=== PATIENT | male | born 1930 | race Caucasian/White ===

== ENCOUNTER 2017-04-09 10:28 | Inpatient (IN) | payer MEDICARE ==
[2017-04-09] MEDS ORDERED: DUONEB 0.5-3 MG/3 ml Neb IH ONE ×2 (10:30→10:36)
--- NOTE | 2017-04-09 10:42 | ERPHSYRPT ---
- History of Present Illness Time Seen by Provider: 04/09/17 10:29 Source: patient, EMS Physician History: CC: confusion Hx: 87 y/o patient udnergoing XRT for cancer. He has almost completed XRT. He was supposed to go to the [facility] today to live. reports he was short of air and confused so called EMS. Pt unable to give coherent hx. EMS noted low O2 saturations requiring NRB mask to get saturation over 90%. Timing/Duration: today Severity: moderate, severe Allergies/Adverse Reactions: No Known Drug Allergies Allergy (Unverified 04/09/17 12:01) - Review of Systems Constitutional: Malaise, Weakness, No Fever, No Chills Respiratory: Cough, Dyspnea Abdominal/Gastrointestinal: No Vomiting, No Diarrhea All Other Systems: Unable due to condition - Past Medical History Pertinent Past Medical History: Yes Other Medical History: Heart Disease. AICD. Head&Neck Squamous Cell Cancer - Social History Patient Lives Alone: No (lives with , going to [facility]) - Nursing Vital Signs Nursing Vital Signs: Initial Vital Signs Temperature 98.3 F 04/09/17 10:29 Pulse Rate 87 04/09/17 10:29 Respiratory Rate 28 H 04/09/17 10:29 Blood Pressure 140/86 04/09/17 10:29 O2 Sat by Pulse Oximetry 84 L 04/09/17 10:29 Pain Scale Pain Intensity 1 - Physical Exam General Appearance: moderate distress, alert Eye Exam: PERRL/EOMI Ears, Nose, Throat Exam: dry mucous membranes Neck Exam: normal inspection, supple Respiratory Exam: crackles/rales, rhonchi Cardiovascular Exam: regular rate/rhythm Gastrointestinal/Abdomen Exam: soft, No tenderness, No distention, No guarding Extremity Exam: No calf tenderness, No pedal edema Neurologic Exam: alert, cooperative (moderately, confused), No motor deficits Skin Exam: warm - Course Nursing assessment & vital signs reviewed: Yes - Radiology Exams cxr X-ray Interpretation: Teleradiologist Report (hyperinflated, now clear) Ordered Tests: Active Orders 24 hr Category Date Time Status County Judge STAT Care 04/09/17 10:29 Active EKG-ER Only STAT Care 04/09/17 10:29 Active Oxygen-ED Only NON-REBREATHER 100% Care 04/09/17 10:30 Active Pulse Oximetry (ED) STAT Care 04/09/17 10:29 Active Rectal Temperature STAT Care 04/09/17 10:32 Active Saline Lock STAT Care 04/09/17 10:29 Active CHEST 1 VIEW (PORTABLE) Stat Exams 04/09/17 10:30 Completed ARTERIAL BLOOD GASES Stat Lab 04/09/17 10:30 Completed BLOOD CULTURE Stat Lab 04/09/17 10:55 Received CBC W DIFF Stat Lab 04/09/17 10:55 Completed CMP Stat Lab 04/09/17 10:55 Completed CULTURE,URINE Stat Lab 04/09/17 10:29 Ordered Lactic Acid Stat Lab 04/09/17 11:05 Completed Manual Differential NC Stat Lab 04/09/17 10:55 Completed NT PRO BNP Stat Lab 04/09/17 10:55 Completed PROTIME WITH INR Stat Lab 04/09/17 10:55 Completed PTT Stat Lab 04/09/17 10:55 Completed UA Stat Lab 04/09/17 10:29 Ordered Respiratory Nebulizer STAT RT 04/09/17 10:30 Completed Medication Summary Generic Name Dose Route Start Last Admin Trade Name Freq PRN Reason Stop Dose Admin Levofloxacin/Dextrose 750 mg in 150 mls @ 100 mls/hr 04/09/17 12:01 Levofloxacin 750mg/150ml D5w IV 04/09/17 13:30 STAT STA Discontinued Medications Generic Name Dose Route Start Last Admin Trade Name Freq PRN Reason Stop Dose Admin Albuterol/Ipratropium 3 ml 04/09/17 10:30 04/09/17 11:12 Duoneb 0.5-3 Mg/3 Ml Neb IH 04/09/17 10:31 3 ml STAT ONE Administration Albuterol/Ipratropium Confirm 04/09/17 10:36 Duoneb 0.5-3 Mg/3 Ml Neb Administered 04/09/17 10:37 Dose 3 ml IH .STK-MED ONE Lorazepam 0.25 mg 04/09/17 11:26 04/09/17 11:33 Ativan 2 Mg/1 Ml Vial IV 04/09/17 11:27 0.25 mg STAT ONE Administration Lorazepam Confirm 04/09/17 11:27 Ativan 2 Mg/1 Ml Vial Administered 04/09/17 11:28 Dose 2 mg .ROUTE .STK-MED ONE Methylprednisolone Sodium Succinate 80 mg 04/09/17 12:01 Solu-Medrol 125 Mg IV 04/09/17 12:02 STAT ONE Lab/Rad Data: Laboratory Result Diagrams 04/09/17 10:55 04/09/17 10:55 Laboratory Results 04/09/17 04/09/17 04/09/17 Range/Units 11:05 10:55 10:55 WBC (4.0-10.5) K/mm3 RBC (4.1-5.6) M/mm3 Hgb (12.5-18.0) gm/dl Hct (42-50) % MCV (78-100) fl MCH (26-32) pg MCHC (32-36) g/dl RDW (11.5-14.0) % Plt Count (150-450) K/mm3 MPV (6-9.5) fl INR 1.24 (0.8-3.0) APTT 30.2 (24.1-36.1) SECONDS Puncture Site pCO2 (35-45) mmHg pO2 (75-100) mmHg Base Excess (-2.0-2.0) O2 Saturation (94-100) g/dF ABG pH (7.35-7.45) ABG HCO3 (22-28) ABG O2 Sat (Measured) (95-100) % Jw Test A-a Gradient a/A Ratio Hemoglobin Carboxyhemoglobin (0.0-6.9) % THgb Methemoglobin (1.4-1.5) % Potassium (3.5-5.1) Temperature C POC O2 Flow Rate % Sodium (136-145) mEq/L Chloride (98-107) mEq/L Carbon Dioxide (21-32) mEq/L Anion Gap (5-15) MEQ/L BUN (9-20) mg/dL Creatinine (0.55-1.30) mg/dl Estimated GFR ML/MIN Glucose (70-110) MG/DL Lactic Acid 1.9 (0.4-2.0) Calcium (8.5-10.1) mg/dL Total Bilirubin (0.2-1.0) mg/dL AST (15-37) U/L ALT (12-78) U/L Alkaline Phosphatase (46-116) U/L NT-Pro-B Natriuret Pep 93066 H (0-450) pg/ml Serum Total Protein (6.4-8.2) gm/dL Albumin (3.4-5.0) g/dL 04/09/17 04/09/17 04/09/17 Range/Units 10:55 10:55 10:30 WBC 5.8 (4.0-10.5) K/mm3 RBC 2.61 L (4.1-5.6) M/mm3 Hgb 9.8 L (12.5-18.0) gm/dl Hct 29.8 L (42-50) % MCV 114.2 H (78-100) fl MCH 37.5 H (26-32) pg MCHC 32.9 (32-36) g/dl RDW 13.9 (11.5-14.0) % Plt Count 182 (150-450) K/mm3 MPV 10.4 H (6-9.5) fl INR (0.8-3.0) APTT (24.1-36.1) SECONDS Puncture Site RIGHT BRACHIAL pCO2 19 L* (35-45) mmHg pO2 75 (75-100) mmHg Base Excess 4.8 H (-2.0-2.0) O2 Saturation 95.5 (94-100) g/dF ABG pH 7.70 H* (7.35-7.45) ABG HCO3 23.5 (22-28) ABG O2 Sat (Measured) 98.6 (95-100) % Jw Test NOT APPLICABLE A-a Gradient 158 a/A Ratio 0.32 Hemoglobin 10.8 Carboxyhemoglobin 2.0 (0.0-6.9) % THgb Methemoglobin 1.1 L (1.4-1.5) % Potassium 3.4 L 3.4 L (3.5-5.1) Temperature 37.0 C POC O2 Flow Rate 36 % Sodium 143 (136-145) mEq/L Chloride 103 (98-107) mEq/L Carbon Dioxide 24.9 (21-32) mEq/L Anion Gap 18.1 H (5-15) MEQ/L BUN 20 (9-20) mg/dL Creatinine 1.02 (0.55-1.30) mg/dl Estimated GFR > 60 ML/MIN Glucose 95 (70-110) MG/DL Lactic Acid (0.4-2.0) Calcium 9.1 (8.5-10.1) mg/dL Total Bilirubin 1.20 H (0.2-1.0) mg/dL AST 29 (15-37) U/L ALT 23 (12-78) U/L Alkaline Phosphatase 73 (46-116) U/L NT-Pro-B Natriuret Pep (0-450) pg/ml Serum Total Protein 7.4 (6.4-8.2) gm/dL Albumin 3.0 L (3.4-5.0) g/dL - Progress Progress Note: 04/09/17 12:04 Pt is hyperventilating. Ativan given. O2 better. He appears to have COPD exac and confusion. Called Dr Ray who is assuming his care at [facility] and will place in obs. Counseled pt/family regarding: lab results, diagnosis, need for follow-up, rad results - Departure Time of Disposition: 12:05 Departure Disposition: Observation Clinical Impression: COPD exacerbation, Squamous cell carcinoma of head and neck Condition: Fair Critical Care Time: No Referrals: SHERYL GARDNER [Primary Care Provider] -
[2017-04-09 11:19] LABS: Mean Cell Volume 114.2 fl (78-100); Mean Corpuscular Hemoglobin 37.5 pg (26-32); Mean Platelet Volume 10.4 fl (6-9.5); Platelet Count 182 K/mm3 (150-450); Red Blood Count 2.61 M/mm3 (4.1-5.6); Red Cell Distribution Width 13.9 % (11.5-14.0); White Blood Count 5.8 K/mm3 (4.0-10.5)
[2017-04-09 11:20] LABS: A-aADO2 158; ARTERIAL BLD GAS O2 SATURATION 98.6 % (95-100); ARTERIAL BLOOD GAS BASE EXCESS 4.8 (-2.0-2.0); ARTERIAL BLOOD GAS FIO2 36 %; ARTERIAL BLOOD GAS PO2 75 mmHg (75-100)
[2017-04-09 11:23] LABS: INR 1.24 (0.8-3.0); PROTIME 13.8 SECONDS (8.83-12.87)
[2017-04-09 11:25] LABS: PTT 30.2 SECONDS (24.1-36.1)
[2017-04-09] MEDS ORDERED: Ativan 2 MG/1 ML VIAL IV ONE (11:26)
[2017-04-09] MEDS ORDERED: Ativan 2 MG/1 ML VIAL ONE (11:27)
--- NOTE | 2017-04-09 11:28 | XRAY ---
Indication: Short of breath and confusion. Comparison: March 13, 2017. Portable chest again hyperinflated and now clear. Heart is not enlarged again demonstrating CABG surgery and left-sided AICD. No new/acute findings.
[2017-04-09 11:31] LABS: ALKALINE PHOSPHATASE 73 U/L (46-116); ANION GAP 18.1 MEQ/L (5-15); BLOOD UREA NITROGEN 20 mg/dL (9-20); CHLORIDE 103 mEq/L (98-107); Carbon Dioxide 24.9 mEq/L (21-32); Glucose 95 MG/DL (70-110); Potassium 3.4 mEq/L (3.5-5.1); SGOT/AST 29 U/L (15-37); SGPT/ALT 23 U/L (12-78); SODIUM 143 mEq/L (136-145); Total Protein 7.4 gm/dL (6.4-8.2)
[2017-04-09] MEDS ORDERED: LEVOFLOXACIN 750MG/150ML D5W 750 MG/150 ML BAG IV STA (12:01)
[2017-04-09] MEDS ORDERED: solu-MEDROL 125 MG IV ONE (12:01)
[2017-04-09] MEDS ORDERED: LEVOFLOXACIN 750MG/150ML D5W 750 MG/150 ML BAG IV ONE (12:10)
[2017-04-09] MEDS ORDERED: solu-MEDROL 125 MG ONE (12:10)
[2017-04-09] MEDS ORDERED: TYLENOL 325 MG PO PRN (12:53)
[2017-04-09] MEDS ORDERED: solu-MEDROL 125 MG IV SCH (12:53)
[2017-04-09 13:38] LABS: ANISOCYTOSIS 1+; Eosinophil 3 % (0.00-3.0); Platelet Estimate NORMAL (NORMAL); Total Cells Counted 100
[2017-04-09] MEDS: DUONEB 0.5-3 MG/3 ml Neb IH SCH ×3 (14:56→23:51)
[2017-04-09] MEDS ORDERED: MEDICATION INTERVENTION MC PRN (15:40)
--- NOTE | 2017-04-09 16:18 | PCM.HP ---
History of Present Illness - Chief Complaint Chief Complaint: Shortness of Breath History of Present Illness: is a 87 year old male who presented to the emergency department with confusion and shortness of breath. He has had a long and steady decline since last year per his . He required lithotripsy and developed a hematoma of the kidney and has never been the same since. 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 He has no known respiratory history, has a history of CABG in 1984. - Review of Systems Constitutional: Weakness, No Fever, No Chills Respiratory: Cough, Short Of Breath Cardiac: No Chest Pain, No Edema, No Syncope Abdominal/Gastrointestinal: No Abdominal Pain, No Nausea, No Vomiting, No Diarrhea Skin: No Rash All Other Systems: Reviewed and Negative Medications & Allergies Home Medications: Home Medication List Carvedilol 3.125 mg [Coreg 3.125 MG] 3.125 mg BID 04/09/17 [History Confirmed 04/09/17] Digoxin 0.125 mg Tablet [Lanoxin 0.125MG TABLET] 0.125 mg DAILY 04/09/17 [ History Confirmed 04/09/17] Levothyroxine Sodium [Synthroid] 125 mcg DAILY 04/09/17 [History Confirmed 04/09] Liothyronine Sodium [Cytomel] 20 mcg DAILY 04/09/17 [History Confirmed 04/09/17] Potassium Chloride 10 Meq Tab* [Klor Con 10 MEQ] 10 meq DAILY 04/09/17 [ History Confirmed 04/09/17] Allergies/Adverse Reactions: Allergies Allergy/AdvReac Type Severity Reaction Status Date / Time No Known Drug Allergies Allergy Unverified 04/09/17 12:51 - Past Medical History Past Medical History: Yes Cardiac History: Congenital Heart Disease Respiratory History: COPD Comment: Heart Disease. AICD. Head&Neck Squamous Cell Cancer - Past Surgical History Past Surgical History: Yes Cardiac History: CABG, Cardiac Catheterization, Internal Defibrillator, Pacemaker GI Surgical History: Appendectomy, Cholecystectomy Genitourinary Surgical Hx: Other Other Surgical History: kidney stone removal - Social History Smoking Status: Former smoker Exposure to second hand smoke: No Alcohol: None Drug Use: none - Physical Exam Vital Signs: Vital Signs - 24 hr Temp Pulse Resp BP Pulse Ox 04/09/17 15:33 97.8 F 74 20 132/86 96 04/09/17 14:59 74 24 98 04/09/17 14:03 98.3 F 90 20 131/58 04/09/17 13:02 98.3 F 90 20 131/58 92 L 04/09/17 12:54 88 22 108/72 95 04/09/17 11:56 94 H 18 108/71 95 04/09/17 11:42 82 18 120/75 99 04/09/17 11:20 98.3 F 84 L 04/09/17 11:16 81 30 H 97 04/09/17 10:29 98.3 F 87 28 H 140/86 84 L Oxygen-Last 24 hours O2 Percentage 4 Liters = 36% O2 Percentage 4 Liters = 36% O2 Percentage 4 Liters = 36% O2 Percentage 4 Liters = 36% General Appearance: no apparent distress, other Neurologic Exam: alert, No oriented x 3 Respiratory Exam: normal breath sounds, lungs clear, No respiratory distress Cardiovascular Exam: regular rate/rhythm, normal heart sounds, normal peripheral pulses Gastrointestinal/Abdomen Exam: soft, normal bowel sounds, No tenderness, No mass Extremity Exam: normal inspection, normal range of motion, pelvis stable Skin Exam: other (mild peeling of skin to right neck, no appreciable adenopathy) Results - Other Procedures and Tests Respiratory Therapy 04/09/17 15:00 Respiratory Nebulizer Q4H Assessment/Plan (1) Altered mental status Current Visit: Yes Status: Acute Assessment & Plan: will continue levaquin for possible bronchitis vs early pneumonia, no wheezing on exam and no history of copd. will d/c IV steroids at this time. Code(s): R41.82 - ALTERED MENTAL STATUS, UNSPECIFIED (2) Cough Current Visit: Yes Status: Acute Code(s): R05 - COUGH (3) Shortness of breath Current Visit: Yes Status: Acute Code(s): R06.02 - SHORTNESS OF BREATH (4) Squamous cell carcinoma of head and neck Current Visit: Yes Status: Acute Code(s): C76.0 - MALIGNANT NEOPLASM OF HEAD , FACE AND NECK
[2017-04-09] MEDS: PROTONIX 40 MG IV IV SCH (17:00)
--- NOTE | 2017-04-09 17:21 | XRAY ---
Indication: Anemia. Multiple contiguous axial images obtained through the abdomen and pelvis without contrast as ordered. Comparison: None Lung bases demonstrates small right effusion with adjacent minimal compressive atelectasis. Left lung base clear. Heart is not enlarged. Noncontrasted stomach and bowel loops appear nonobstructed. Mild diffuse scattered colonic fecal debris throughout including moderate rectal impaction. Previous cholecystectomy. 1.4 cm left renal cyst. Right posterior urinary bladder demonstrates curvilinear calcifications either tiny calculi versus bladder wall calcifications. No free fluid/air. Several prostate radiation seeds. Remaining liver, pancreas, spleen, adrenal glands, kidneys, and ureters appear unremarkable for noncontrast exam. Moderate aortoiliac calcifications with 3.6 cm distal AAA. Osseous structures intact with mild degenerative changes throughout the spine. Impression: 1. Mild fecal stasis with rectal impaction. 2. Right posterior urinary bladder calculi versus bladder wall calcifications. The latter is favored as there is no calculi in either kidneys. Direct cystoscopy may yield further information. 3. 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 4. Left renal cyst. 5. Small right effusion of uncertain etiology. CTDI 8.29
[2017-04-09] MEDS: Sodium Chloride 0.9% W/ 20 mEq KCl/LITER 1,000 ML IV SCH (17:45)
[2017-04-09] MEDS: Coreg 3.125 MG PO SCH (22:08)
[2017-04-09] MEDS: Ativan 2 MG/1 ML VIAL IV PRN (22:25)
[2017-04-10] MEDS: Ativan 2 MG/1 ML VIAL IV PRN ×2 (02:21→14:53)
[2017-04-10] MEDS: DUONEB 0.5-3 MG/3 ml Neb IH SCH (04:39)
[2017-04-10] MEDS ORDERED: DUONEB 0.5-3 MG/3 ml Neb IH PRN (05:23)
[2017-04-10 05:52] LABS: Mean Cell Volume 113.7 fl (78-100); Mean Corpuscular Hemoglobin 36.3 pg (26-32); Mean Platelet Volume 10.8 fl (6-9.5); Platelet Count 153 K/mm3 (150-450); Red Blood Count 2.34 M/mm3 (4.1-5.6); Red Cell Distribution Width 13.9 % (11.5-14.0); White Blood Count 5.3 K/mm3 (4.0-10.5)
[2017-04-10 05:57] LABS: ANION GAP 11.9 MEQ/L (5-15); BLOOD UREA NITROGEN 25 mg/dL (9-20); CHLORIDE 107 mEq/L (98-107); Carbon Dioxide 27.7 mEq/L (21-32); Glucose 115 MG/DL (70-110); Potassium 3.7 mEq/L (3.5-5.1); SODIUM 143 mEq/L (136-145)
[2017-04-10] MEDS ORDERED: Haldol 5 MG IM ONE ×2 (06:38→15:45)
[2017-04-10 07:19] LABS: Total Cells Counted 100
[2017-04-10 07:20] LABS: ANISOCYTOSIS 2+; Platelet Estimate NORMAL (NORMAL); Poikilocytosis 2+; Toxic Granulation 1+
[2017-04-10] MEDS: Haldol 5 MG IV ONE ×2 (07:25→07:42)
[2017-04-10] MEDS ORDERED: Dulcolax 10 MG SUPP PR PRN (08:20)
--- NOTE | 2017-04-10 08:25 | PCM.NOTE ---
Date and Time: 04/10/17819 Subjective Assessment: This morning he pulled out his IV and was agitated; improved with IM haldol. Currently he is having conversations in his room (no one else is present) and is completely disoriented. Pleasant and cooperative. Denies any pain. - Review of Systems Constitutional: No Fever Psychological: Hallucinations Objective Exam General Appearance: no apparent distress, alert Neurologic Exam: cooperative, confusion Skin Exam: normal color, warm, dry Respiratory Exam: normal breath sounds, lungs clear, No crackles/rales, No rhonchi, No wheezing Cardiovascular Exam: regular rate/rhythm, normal heart sounds, No murmur Extremity Exam: No pedal edema, No swelling Back Exam: normal inspection OBJECTIVE DATA Vital Signs: Vital Signs - 24 hr Temp Pulse Resp BP Pulse Ox 04/09/17 23:52 97.7 F 88 20 106/84 94 L 04/09/17 20:00 97.8 F 107 H 22 110/60 92 L 04/09/17 18:58 86 21 97 04/09/17 15:33 97.8 F 74 20 132/86 96 04/09/17 14:59 74 24 98 04/09/17 14:03 98.3 F 90 20 131/58 04/09/17 13:02 98.3 F 90 20 131/58 92 L 04/09/17 12:54 88 22 108/72 95 04/09/17 11:56 94 H 18 108/71 95 04/09/17 11:42 82 18 120/75 99 04/09/17 11:20 98.3 F 84 L 04/09/17 11:16 81 30 H 97 04/09/17 10:29 98.3 F 87 28 H 140/86 84 L Oxygen-Last 24 hours O2 Percentage 4 Liters = 36% O2 Percentage 4 Liters = 36% O2 Percentage 4 Liters = 36% O2 Percentage 4 Liters = 36% Pain Assessment - Last Documented Pain Intensity 0 Pain Scale Used 0-10 Pain Scale Intake and Output: Intake & Output 04/07/17 04/08/17 04/09/17 04/10/17 11:59 11:59 11:59 11:59 Intake Total 758 Balance 758 Weight 49.895 kg Lab Results: Lab Results-Last 24 Hours 11/14/17 11/14/17 Range/Units 05:38 05:38 WBC 5.3 (4.0-10.5) K/mm3 RBC 2.34 L (4.1-5.6) M/mm3 Hgb 8.5 L (12.5-18.0) gm/dl Hct 26.6 L (42-50) % MCV 113.7 H (78-100) fl MCH 36.3 H (26-32) pg MCHC 32.0 (32-36) g/dl RDW 13.9 (11.5-14.0) % Plt Count 153 (150-450) K/mm3 MPV 10.8 H (6-9.5) fl Segmented Neutrophils 94 H (36.-66.) % Lymphocytes (Manual) 2 L (24-44) % Monocytes (Manual) 4 (0.0-12.0) % Differential Comment ABNORMAL Toxic Granulation 1+ Platelet Estimate NORMAL (NORMAL) Poikilocytosis 2+ Anisocytosis 2+ Sodium 143 (136-145) mEq/L Potassium 3.7 (3.5-5.1) mEq/L Chloride 107 (98-107) mEq/L Carbon Dioxide 27.7 (21-32) mEq/L Anion Gap 11.9 (5-15) MEQ/L BUN 25 H (9-20) mg/dL Creatinine 1.03 (0.55-1.30) mg/dl Estimated GFR > 60 ML/MIN Glucose 115 H (70-110) MG/DL Calcium 9.3 (8.5-10.1) mg/dL Magnesium 2.0 (1.8-2.4) mg/dL Radiology Exams: Radiology Procedures Category Date Time Status ABDOMEN AND PELVIS W/0 CONTRAS [CT] Routine Exams 04/09/17 16:21 Completed Assessment/Plan (1) Altered mental status Current Visit: Yes Status: Acute Qualifiers: Altered mental status type: disorientation Qualified Code(s): R41.0 - Disorientation, unspecified Assessment & Plan: He had a UA on 04/06 but nothing this admission that we can find - re-ordered. Also, if this is truly a new onset AMS for this pt, will order CT head without contrast. However, his habitus suggests that he has significant memory loss at baseline as he is emaciated. Code(s): R41.82 - ALTERED MENTAL STATUS, UNSPECIFIED (2) COPD exacerbation Current Visit: Yes Status: Acute Assessment & Plan: On Levaquin IV. Code(s): J44.1 - CHRONIC OBSTRUCTIVE PULMONARY DISEASE W (ACUTE) EXACERBATION (3) Squamous cell carcinoma of head and neck Current Visit: Yes Status: Acute Assessment & Plan: Missing radiation to neck today. Code(s): C76.0 - MALIGNANT NEOPLASM OF HEAD, FACE AND NECK
[2017-04-10] MEDS: SYNTHROID 125 MCG PO SCH (09:49)
[2017-04-10] MEDS: Lanoxin 0.125MG TABLET PO SCH (09:49)
[2017-04-10] MEDS: Coreg 3.125 MG PO SCH (09:49)
[2017-04-10] MEDS: Klor Con 10 MEQ PO SCH (09:49)
[2017-04-10] MEDS ORDERED: LIOTHYRONINE SODIUM PO SCH (10:00)
[2017-04-10] MEDS: PATIENT OWN MEDICATION PO SCH (10:18)
--- NOTE | 2017-04-10 11:43 | XRAY ---
Indication: Altered mental status. Multiple contiguous axial images obtained through the head without contrast. Comparison: None Age-appropriate global atrophy and moderate periventricular degenerative micro-ischemia bilaterally. 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 No acute intracranial hemorrhage, hydrocephalus, or mass effect. Mild scattered vertebral and parasellar internal carotid calcifications bilaterally with a few punctate calcifications in the right MCA. Bony calvarium intact. Visualized paranasal sinuses and mastoid air cells are clear. 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 CT DI 61.28
[2017-04-10 12:05] LABS: ADD URINE CULTURE? YES (NO); Bacteria FEW /HPF (NEGATIVE); Bilirubin NEGATIVE (NEGATIVE); COMPLETE URINE MICROSCOPIC? YES; Collection Type CATH; Glucose NEGATIVE (NEGATIVE); Leukocyte Esterase TRACE (NEGATIVE); Mucus SLIGHT /HPF (NEGATIVE)
[2017-04-10] MEDS ORDERED: BENADRYL 50 MG/ML IV ONE (15:45)
[2017-04-10] MEDS: PROTONIX 40 MG IV IV SCH (15:51)
[2017-04-10] MEDS: Sodium Chloride 0.9% W/ 20 mEq KCl/LITER 1,000 ML IV SCH (16:19)
[2017-04-11] MEDS: Coreg 3.125 MG PO SCH ×3 (00:23→22:31)
[2017-04-11] MEDS ORDERED: Haldol 5 MG IM PRN (05:45)
[2017-04-11] MEDS ORDERED: BENADRYL 50 MG/ML IV PRN (05:49)
--- NOTE | 2017-04-11 07:48 | PCM.NOTE ---
Date and Time: 04/11/17 0746 Subjective Assessment: patient still quite confused, denies pain or complaints. states he has to get out of here, mumbling about paying for a . Objective Exam General Appearance: no apparent distress, thin Neurologic Exam: alert, cooperative, No oriented x 3 Skin Exam: normal color, warm, dry Respiratory Exam: normal breath sounds, lungs clear, No respiratory distress Cardiovascular Exam: regular rate/rhythm, normal heart sounds Gastrointestinal/Abdomen Exam: soft, No tenderness, No mass Extremity Exam: normal inspection, normal range of motion OBJECTIVE DATA Vital Signs: Vital Signs - 24 hr Temp Pulse Resp BP BP Pulse Ox 04/11/17 07:41 87 18 149/65 94 L 04/11/17 04:00 97.7 F 85 16 124/58 98 04/11/17 00:00 96.3 F 76 18 120/57 99 04/10/17 21:13 73 20 93 L 04/10/17 20:01 94 L 04/10/17 20:00 99.1 F 75 20 113/56 89 L 04/10/17 16:00 97.8 F 75 22 155/65 95 04/10/17 14:00 98 04/10/17 12:00 98.5 F 91 H 20 115/57 98 04/10/17 09:49 83 116/55 04/10/17 08:00 97.2 F 83 18 116/55 97 Oxygen-Last 24 hours O2 Percentage 2 Liters = 28% Pain Assessment - Last Documented Pain Intensity 0 Pain Scale Used 0-10 Pain Scale Intake and Output: Intake & Output 04/08/17 04/09/17 04/10/17 04/11/17 11:59 11:59 11:59 11:59 Intake Total 758 1288 Output Total 250 Balance 758 1038 Weight 49.895 kg Lab Results: Lab Results-Last 24 Hours 04/10/17 Range/Units 11:35 Ur Collection Type CATH Urine Color YELLOW (YELLOW) Urine Appearance CLEAR (CLEAR) Urine pH 5.0 (5-6) Ur Specific [place] 1.020 (1.005-1.025) Urine Protein TRACE (Negative) Urine Ketones TRACE (NEGATIVE) Urine Blood 5-10 (0-5) Aleksandr/ul Urine Nitrite NEGATIVE (NEGATIVE) Urine Bilirubin NEGATIVE (NEGATIVE) Urine Urobilinogen NORMAL (0-1) mg/dL Ur Leukocyte Esterase TRACE (NEGATIVE) Urine Microscopic RBC 0-2 (0-2) /HPF Urine Microscopic WBC 5-10 (0-5) /HPF Urine Bacteria FEW (NEGATIVE) /HPF Urine Mucus SLIGHT (NEGATIVE) /HPF Urine Culture Reflexed YES (NO) Urine Glucose NEGATIVE (NEGATIVE) mg/dL Specimen Received 04/10/17 1135 Radiology Exams: Radiology Procedures Category Date Time Status ABDOMEN AND PELVIS W/0 CONTRAS [CT] Routine Exams 04/09/17 16:21 Completed HEAD WITHOUT CONTRAST [CT] Urgent Exams 04/10/17 08:25 Completed Assessment/Plan (1) Altered mental status Current Visit: Yes Status: Acute Qualifiers: Altered mental status type: disorientation Qualified Code(s): R41.0 - Disorientation, unspecified Assessment & Plan: add seroquel at bedtime, likely has chronic dementia that is acutely worse Code(s): R41.82 - ALTERED MENTAL STATUS, UNSPECIFIED (2) Cough Current Visit: Yes Status: Acute Assessment & Plan: continue levaquin for acute bronchitis Code(s): R05 - COUGH (3) Shortness of breath Current Visit: Yes Status: Acute Code(s): R06.02 - SHORTNESS OF BREATH (4) Squamous cell carcinoma of head and neck Current Visit: Yes Status: Acute Code(s): C76.0 - MALIGNANT NEOPLASM OF HEAD , FACE AND NECK (5) CHF (congestive heart failure) Current Visit: Yes Status: Acute Assessment & Plan: patient with no overt signs of volume overload on exam or imaging. pro-BNP markedly elevated, will continue current management Code(s): I50.9 - HEART FAILURE, UNSPECIFIED
[2017-04-11] MEDS: Lanoxin 0.125MG TABLET PO SCH (09:44)
[2017-04-11] MEDS: SYNTHROID 125 MCG PO SCH (09:50)
[2017-04-11] MEDS: Klor Con 10 MEQ PO SCH (09:50)
[2017-04-11] MEDS: PATIENT OWN MEDICATION PO SCH (09:50)
[2017-04-11] MEDS ORDERED: LEVOFLOXACIN 750MG/150ML D5W 750 MG/150 ML BAG IV SCH (10:00)
[2017-04-11] MEDS: Sodium Chloride 0.9% W/ 20 mEq KCl/LITER 1,000 ML IV SCH (13:26)
[2017-04-11] MEDS: PROTONIX 40 MG IV IV SCH (16:04)
[2017-04-11] MEDS ORDERED: Seroquel 25 MG PO SCH (22:00)
[2017-04-12 06:32] LABS: Mean Cell Volume 115.1 fl (78-100); Platelet Count 151 K/mm3 (150-450); Red Blood Count 2.18 M/mm3 (4.1-5.6); White Blood Count 4.4 K/mm3 (4.0-10.5)
[2017-04-12 06:39] LABS: Mean Corpuscular Hemoglobin 37.1 pg (26-32)
[2017-04-12 06:50] LABS: ALBUMIN 2.2 g/dL (3.4-5.0); ALKALINE PHOSPHATASE 54 U/L (46-116); ANION GAP 7.8 MEQ/L (5-15); BLOOD UREA NITROGEN 19 mg/dL (9-20); CHLORIDE 112 mEq/L (98-107); Glucose 80 MG/DL (70-110); Potassium 3.6 mEq/L (3.5-5.1); SGOT/AST 47 U/L (15-37); SGPT/ALT 21 U/L (12-78); SODIUM 144 mEq/L (136-145); Total Protein 5.7 gm/dL (6.4-8.2)
[2017-04-12 08:01] LABS: Platelet Estimate NORMAL (NORMAL); Total Cells Counted 100
--- NOTE | 2017-04-12 08:18 | PCM.DS ---
Discharge Summary Date of Admission: 04/10/17 08:20 Admitting Physician: LISSA TINOCO Primary Care Provider: KISHAN RIVER Allergies Allergies No Known Drug Allergies Allergy (Unverified 04/09/17 12:51) Hospital Summary - Hospital Course Hospital Course: patient was admitted as he was supposed to be admitted to [facility] on date of admission, he became more acutely confused and was apparently short of breath so came to ER and was admitted. initial impression was bronchitis vs copd but he has no history of pulmonary disease. per his in the last year he has had a sharp functional declines, apparently there is some family controversy but he has progressed to where he needs around the clock care, his bnp was markedly elevated but clinically there were not signs of volume overload. he has been covered with empiric antibitoics but urine was negative and there has been no source of infection identified, he has an iron def anemia, stool for occult blood was negative, abd ct was performed to r/o perinephric bleeding due to history and was negative. - Vitals & Intake/Output Vital Signs: Vital Signs Temperature 97.8 F 04/12/17 04:50 Pulse Rate 59 L 04/12/17 07:14 Respiratory Rate 18 04/12/17 07:14 Blood Pressure 125/65 04/12/17 04:50 O2 Sat by Pulse Oximetry 91 L 04/12/17 07:14 Oxygen-Last Documented O2 Percentage 2 Liters = 28% Intake & Output: Intake & Output 04/09/17 04/10/17 04/11/17 04/12/17 11:59 11:59 11:59 11:59 Intake Total 0 1288 1863 Output Total 250 176 Balance 0 1038 1687 - Lab Result Diagrams: 04/12/17 05:25 04/12/17 05:25 Lab Results-Last 24 Hrs: Lab Results-Last 24 Hours 04/11/17 04/12/17 04/12/17 Range/Units 15:00 05:25 05:25 WBC 4.4 (4.0-10.5) K/mm3 RBC 2.18 L (4.1-5.6) M/mm3 Hgb 8.1 L (12.5-18.0) gm/dl Hct 25.1 L (42-50) % MCV 115.1 H (78-100) fl MCH 37.1 H (26-32) pg MCHC 32.3 (32-36) g/dl RDW 14.0 (11.5-14.0) % Plt Count 151 (150-450) K/mm3 MPV 11.0 H (6-9.5) fl Segmented Neutrophils 77 H (36.-66.) % Lymphocytes (Manual) 19 L (24-44) % Monocytes (Manual) 4 (0.0-12.0) % Differential Comment NORMAL Platelet Estimate NORMAL (NORMAL) Sodium 144 (136-145) mEq/L Potassium 3.6 (3.5-5.1) mEq/L Chloride 112 H (98-107) mEq/L Carbon Dioxide 28.0 (21-32) mEq/L Anion Gap 7.8 (5-15) MEQ/L BUN 19 (9-20) mg/dL Creatinine 0.94 (0.55-1.30) mg/dl Estimated GFR > 60 ML/MIN Glucose 80 (70-110) MG/DL Calcium 8.3 L (8.5-10.1) mg/dL Total Bilirubin 0.50 (0.2-1.0) mg/dL AST 47 H (15-37) U/L ALT 21 (12-78) U/L Alkaline Phosphatase 54 (46-116) U/L Serum Total Protein 5.7 L (6.4-8.2) gm/dL Albumin 2.2 L (3.4-5.0) g/dL Stool Occult Bld Scrn NEGATIVE Micro Results-Entire Visit: Microbiology 04/10/17 11:35 - Preliminary Urine, Catheterized NO GROWTH TO DATE - Radiology Exams Ordered Rad Exams-Entire Visit: Radiology Procedures Category Date Time Status HEAD WITHOUT CONTRAST [CT] Urgent Exams 04/10/17 08:25 Completed Discharge Exam General Appearance: no apparent distress Neurologic Exam: alert, No oriented x 3 Skin Exam: normal color, warm, dry Respiratory Exam: normal breath sounds, lungs clear, No respiratory distress Cardiovascular Exam: regular rate/rhythm, normal heart sounds Gastrointestinal/Abdomen Exam: soft, No tenderness, No mass Extremity Exam: normal inspection, normal range of motion Final Diagnosis/Problem List - Final Discharge Diagnosis/Problem (1) Altered mental status Current Visit: Yes Status: Acute Assessment & Plan: appears to have underlying dementia that has worsened more acutely but no obvious cause of delirium, will continue seroquel at bedtime as it seems to have improved his sleep and confusion. unfortunately not much else that can be done to improve his mentation at this time. 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 Current Visit: Yes Status: Acute (5) CHF (congestive heart failure) Current Visit: Yes Status: Acute - Discharge Disposition: Skilled Care @ [facility] Condition: Fair Prescriptions: New Docusate Sodium 100 mg [Colace 100 MG] 100 mg PO BID #60 Bisacodyl 10 mg [Dulcolax 10 MG SUPP] 10 mg MN QDP PRN #30 supp.rect PRN Reason: Constipation Albuterol/Ipratropium 3ml Neb* [DUONEB 0.5-3 MG/3 ml Neb] 3 ml IH Q4HPRN PRN #100 ampul.neb PRN Reason: Shortness Of Breath/Wheezing Ferrous Sulfate 325 mg [Feosol 325 mg] 325 mg PO DAILY #30 tablet Quetiapine Fumarate 25 mg [Seroquel 25 MG] 50 mg PO HS #30 tablet Acetaminophen 325 mg [Tylenol 325 mg] 650 mg PO Q4H PRN PRN #60 tablet PRN Reason: Pain And/Or Fever Continue Potassium Chloride 10 Meq Tab* [Klor Con 10 MEQ] 10 meq DAILY Liothyronine Sodium [Cytomel] 20 mcg DAILY Levothyroxine Sodium [Synthroid] 125 mcg DAILY Digoxin 0.125 mg Tablet [Lanoxin 0.125MG TABLET] 0.125 mg DAILY Carvedilol 3.125 mg [Coreg 3.125 MG] 3.125 mg BID Follow up with: SHERYL GARDNER [CONSULTING PHYSICIAN] -
[2017-04-12] MEDS: Lanoxin 0.125MG TABLET PO SCH (08:40)
[2017-04-12] MEDS: Coreg 3.125 MG PO SCH (08:40)
[2017-04-12] MEDS: Klor Con 10 MEQ PO SCH (08:40)
[2017-04-12] MEDS: SYNTHROID 125 MCG PO SCH (08:40)
[2017-04-12] MEDS: PATIENT OWN MEDICATION PO SCH (08:41)
[2017-04-12 08:53] VITALS: BP 147/61; PULSE 63
[2017-04-12 09:28] VITALS: O2SAT 92
== END 2017-04-12 12:00 | DRG 948 ==
LOC: ED 10:28 → MED SURG 12:42 → OBSVTOIN 04-10 08:20
PROVIDERS: ADMIT Family Medicine; ATTEND Family Medicine
DX: R41.0 Disorientation, unspecified (principal); J44.1 Chronic obstructive pulmonary disease with (acute) exacerbation; R05 Cough; R06.02 Shortness of breath; C76.0 Malignant neoplasm of head, face and neck; I50.9 Heart failure, unspecified; Z95.810 Presence of automatic (implantable) cardiac defibrillator; Z87.891 Personal history of nicotine dependence; Z98.61 Coronary angioplasty status
CPT/HCPCS: 36415; 36600; 70450; 71010; 74176; 80048; 80053; 80162; 81000; 82270; 82375; 82607; 82728; 82746; 82803; 82962; 83540; 83605; 83735; 83880; 85025; 85045; 85610; 85730; 87040; 87086; 93005; 93041; 94640; 94760; 94762; 96360; 96374; 99285; G0378; J1200; J1630; J1956; J2060; J2930; A9270-GY

== ENCOUNTER 2017-07-24 14:00 | Inpatient (IN) | payer MEDICARE ==
[2017-07-24] MEDS ORDERED: Sodium Chloride 0.9% 1000 ML 1,000 ML IV SCH (14:15)
--- NOTE | 2017-07-24 14:33 | ERPHSYRPT ---
- History of Present Illness Time Seen by Provider: 07/24/17 14:05 Source: patient, family (), EMS Patient Subjective Stated Complaint: PT COMES FROM [facility] PER EMS. THEY WERE CALLED FOR DEHYRDATION PT DENIES ANY NAUSEA. VOMITIGN DIARRHEA OR PAIN ANYWHERE PT STATES "I DON'T KNOW WHY I'M HERE EITHER. PT AT BEDSIDE AND STATES TAHT HE HASN'T BEEN EATING. Triage Nursing Assessment: PT ALERT WARM AND DRY RESPEASY NON LABORED. ORIENTED X 3 Physician History: CC: weakness Hx: 87 y/o patient of Dr Ray. 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 He now lives with his at [facility]. He had lithotripsy 2 years ago for stone disease complicated by bleeding. He subsequently had SCC of the neck treated with XRT. He has times where he does not eat well. He has periods of ups and downs. He has even been in the NH. Last week on Sunday he had full day cognitive evaluation and he has not eaten much since. He denies ankita depression. No thoughts of self harm. He has no pain. No vomiting or diarrhea. reports there is a family lawsuit attempting to take guardianship of the patient. That is the reason for the cognitive evaluation. Severity: moderate Allergies/Adverse Reactions: No Known Drug Allergies Allergy (Verified 05/15/17 09:07) Home Medications: Carvedilol 3.125 mg [Coreg 3.125 MG] 3.125 mg BID 04/09/17 [History] Digoxin 0.125 mg Tablet [Lanoxin 0.125MG TABLET] 0.125 mg DAILY 04/09/17 [ History] Levothyroxine Sodium [Synthroid] 125 mcg DAILY 04/09/17 [History] Liothyronine Sodium [Cytomel] 20 mcg DAILY 04/09/17 [History] Potassium Chloride 10 Meq Tab* [Klor Con 10 MEQ] 10 meq DAILY 04/09/17 [ History] Amiodarone HCl 200 mg [Cordarone 200 MG] 200 mg PO DAILY 05/15/17 [History ] Amlodipine Besylate 5 mg [Norvasc 5 mg] 5 mg PO DAILY 05/15/17 [History] Aspirin 81 mg PO DAILY 05/15/17 [History] Cholecalciferol (Vitamin D3) [Vitamin D3] 5,000 unit PO DAILY 05/15/17 [History] Rosuvastatin Calcium [Crestor] 10 mg PO DAILY 05/15/17 [History] Hx Tetanus, Diphtheria Vaccination/Date Given: Yes Hx Influenza Vaccination/Date Given: Yes Hx Pneumococcal Vaccination/Date Given: Yes Immunizations Up to Date: Yes - Review of Systems Constitutional: Fatigue, Malaise, Weakness, No Fever, No Chills Eyes: No Symptoms Ears, Nose, & Throat: No Mouth Pain Respiratory: No Cough, No Dyspnea Cardiac: No Chest Pain Abdominal/Gastrointestinal: No Abdominal Pain, No Nausea, No Vomiting, No Diarrhea Genitourinary Symptoms: Frequency, No Dysuria Skin: No Rash Neurological: No Focal Weakness, No Headache Psychological: No Depression, No Suicidal Ideations All Other Systems: Reviewed and Negative - Past Medical History Pertinent Past Medical History: Yes Neurological History: No Pertinent History ENT History: No Pertinent History Cardiac History: Congenital Heart Disease Respiratory History: COPD Endocrine Medical History: No Pertinent History Musculoskeletal History: No Pertinent History GI Medical History: No Pertinent History History: No Pertinent History Psycho-Social History: No Pertinent History Male Reproductive Disorders: No Pertinent History Other Medical History: Heart Disease. AICD. Head&Neck Squamous Cell Cancer. anemia - Past Surgical History Past Surgical History: Yes Neuro Surgical History: No Pertinent History Cardiac: CABG, Cardiac Catheterization, Internal Defibrillator, Pacemaker Respiratory: No Pertinent History Gastrointestinal: Appendectomy, Cholecystectomy Genitourinary: Other Male Surgical History: No Pertinent History Other Surgical History: kidney stone removal - Social History Smoking Status: Never smoker Exposure to second hand smoke: No Drug Use: none Patient Lives Alone: No - Nursing Vital Signs Nursing Vital Signs: Initial Vital Signs Temperature 97.9 F 07/24/17 14:02 Pulse Rate 60 07/24/17 14:02 Respiratory Rate 18 07/24/17 14:02 O2 Sat by Pulse Oximetry 92 L 07/24/17 14:02 - Physical Exam General Appearance: alert, other (alert to conversation, surrounding, year, and follows all commands) Eye Exam: PERRL/EOMI Ears, Nose, Throat Exam: dry mucous membranes Neck Exam: normal inspection, non-tender, supple Respiratory Exam: diminished breath sounds (left) Cardiovascular Exam: regular rate/rhythm Gastrointestinal/Abdomen Exam: soft, No tenderness, No distention, No mass, No guarding Male Genitalia Exam: normal genitalia Extremity Exam: normal inspection, normal range of motion Neurologic Exam: alert, oriented x 3, cooperative, 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, sensation nml, No motor deficits Skin Exam: warm, dry, No rash SpO2 Interpretation: hypoxic, O2 applied SpO2: 77 Oxygen Delivery: Room Air - Course Nursing assessment & vital signs reviewed: Yes EKG Interpreted by Me: RATE (60), Other (dual chamber pacemaker) - Radiology Exams cxr X-ray Interpretation: Teleradiologist Report (new bilateral pleural effusion, right effusion 50%) Ordered Tests: Active Orders 24 hr Category Date Time Status Clean Catch Urine Specimen STAT Care 07/24/17 14:05 Active EKG-ER Only STAT Care 07/24/17 14:05 Active IV Insertion STAT Care 07/24/17 14:05 Active OBSTR/ACUTE ABDOMEN SERIES Stat Exams 07/24/17 14:34 Completed CBC W DIFF Stat Lab 07/24/17 14:41 Results CMP Stat Lab 07/24/17 14:41 Completed CULTURE,URINE Stat Lab 07/24/17 15:00 Received DIGOXIN Stat Lab 07/24/17 14:41 Completed Lactic Acid Stat Lab 07/24/17 14:05 Results MAGNESIUM Stat Lab 07/24/17 14:41 Completed Manual Differential NC Stat Lab 07/24/17 14:41 Results PROTIME WITH INR Stat Lab 07/24/17 14:41 Completed Pathologist Review Stat Lab 07/24/17 14:41 Results TSH [TSH, 3RD Generation] Stat Lab 07/24/17 14:41 Completed UA W/ MICROSCOPIC Stat Lab 07/24/17 15:00 Completed Medication Summary Generic Name Dose Route Start Last Admin Trade Name Freq PRN Reason Stop Dose Admin Sodium Chloride 1,000 mls @ 100 mls/hr 07/24/17 14:15 07/24/17 14:54 Sodium Chloride 0.9% 1000 Ml IV 08/23/17 14:14 100 mls/hr .Q10H DARSHAN Administration Lab/Rad Data: Laboratory Result Diagrams 07/24/17 14:41 07/24/17 14:41 Laboratory Results 07/24/17 07/24/17 07/24/17 Range/Units 15:00 14:41 14:41 WBC (4.0-10.5) K/mm3 RBC (4.1-5.6) M/mm3 Hgb (12.5-18.0) gm/dl Hct (42-50) % MCV (78-100) fl MCH (26-32) pg MCHC (32-36) g/dl RDW (11.5-14.0) % Plt Count (150-450) K/mm3 MPV (6-9.5) fl Segmented Neutrophils (36.-66.) % Lymphocytes (Manual) (24-44) % Monocytes (Manual) (0.0-12.0) % Eosinophils (Manual) (0.00-3.0) % Differential Comment Platelet Estimate (NORMAL) Polychromasia Anisocytosis Macrocytosis Ovalocytes Smear Path Review INR 1.14 (0.8-3.0) Sodium (136-145) mEq/L Potassium (3.5-5.1) mEq/L Chloride (98-107) mEq/L Carbon Dioxide (21-32) mEq/L Anion Gap (5-15) MEQ/L BUN (9-20) mg/dL Creatinine (0.55-1.30) mg/dl Estimated GFR ML/MIN Glucose (70-110) MG/DL Lactic Acid (0.4-2.0) Calcium (8.5-10.1) mg/dL Magnesium (1.8-2.4) mg/dL Total Bilirubin (0.2-1.0) mg/dL AST (15-37) U/L ALT (12-78) U/L Alkaline Phosphatase (46-116) U/L Serum Total Protein (6.4-8.2) gm/dL Albumin (3.4-5.0) g/dL TSH 3rd Generation 3.577 (0.358-3.740) mIU/L Ur Collection Type VOID Urine Color YELLOW (YELLOW) Urine Appearance CLEAR (CLEAR) Urine pH 7.0 (5-6) Ur Specific [place] 1.010 (1.005-1.025) Urine Protein TRACE (Negative) Urine Ketones NEGATIVE (NEGATIVE) Urine Blood 5-10 (0-5) Aleksandr/ul Urine Nitrite NEGATIVE (NEGATIVE) Urine Bilirubin SMALL (NEGATIVE) Urine Urobilinogen 4 (0-1) mg/dL Ur Leukocyte Esterase TRACE (NEGATIVE) Urine Microscopic RBC 0-2 (0-2) /HPF Urine Microscopic WBC 5-10 (0-5) /HPF Ur Epithelial Cells RARE (FEW) /HPF Urine Bacteria FEW (NEGATIVE) /HPF Urine Mucus SLIGHT (NEGATIVE) /HPF Urine Culture Reflexed YES (NO) Urine Glucose NEGATIVE (NEGATIVE) mg/dL Digoxin (0.5-1.5) ng/ml Specimen Received 07/24/17 1500 07/24/17 07/24/17 07/24/17 Range/Units 14:41 14:41 14:05 WBC 5.9 (4.0-10.5) K/mm3 RBC 2.86 L (4.1-5.6) M/mm3 Hgb 10.7 L (12.5-18.0) gm/dl Hct 33.2 L (42-50) % MCV 116.1 H (78-100) fl MCH 37.4 H (26-32) pg MCHC 32.2 (32-36) g/dl RDW 15.2 H (11.5-14.0) % Plt Count 189 (150-450) K/mm3 MPV 10.9 H (6-9.5) fl Segmented Neutrophils 80 H (36.-66.) % Lymphocytes (Manual) 7 L (24-44) % Monocytes (Manual) 6 (0.0-12.0) % Eosinophils (Manual) 7 H (0.00-3.0) % Differential Comment ABNORMAL Platelet Estimate NORMAL (NORMAL) Polychromasia 1+ Anisocytosis 1+ Macrocytosis 2+ Ovalocytes 1+ Smear Path Review Pending INR (0.8-3.0) Sodium 148 H (136-145) mEq/L Potassium 3.8 (3.5-5.1) mEq/L Chloride 110 H (98-107) mEq/L Carbon Dioxide 27.3 (21-32) mEq/L Anion Gap 14.3 (5-15) MEQ/L BUN 27 H (9-20) mg/dL Creatinine 1.34 H (0.55-1.30) mg/dl Estimated GFR 53 ML/MIN Glucose 117 H (70-110) MG/DL Lactic Acid 2.1 H (0.4-2.0) Calcium 9.3 (8.5-10.1) mg/dL Magnesium 2.1 (1.8-2.4) mg/dL Total Bilirubin 0.70 (0.2-1.0) mg/dL AST 42 H (15-37) U/L ALT 34 (12-78) U/L Alkaline Phosphatase 93 (46-116) U/L Serum Total Protein 7.5 (6.4-8.2) gm/dL Albumin 2.9 L (3.4-5.0) g/dL TSH 3rd Generation (0.358-3.740) mIU/L Ur Collection Type Urine Color (YELLOW) Urine Appearance (CLEAR) Urine pH (5-6) Ur Specific [place] (1.005-1.025) Urine Protein (Negative) Urine Ketones (NEGATIVE) Urine Blood (0-5) Aleksandr/ul Urine Nitrite (NEGATIVE) Urine Bilirubin (NEGATIVE) Urine Urobilinogen (0-1) mg/dL Ur Leukocyte Esterase (NEGATIVE) Urine Microscopic RBC (0-2) /HPF Urine Microscopic WBC (0-5) /HPF Ur Epithelial Cells (FEW) /HPF Urine Bacteria (NEGATIVE) /HPF Urine Mucus (NEGATIVE) /HPF Urine Culture Reflexed (NO) Urine Glucose (NEGATIVE) mg/dL Digoxin 1.70 H* (0.5-1.5) ng/ml Specimen Received - Progress Progress Note: 07/24/17 14:46 Measured weight 51.6kg. 07/24/17 16:32 Pt stable here. He has recurrent pleural effusion which was drained at [facility] in March. He has hx of SCC for which he saw Dr Poole. He has XRT thru Dr Monroy. Called Dr Rosario for [place] and will place in tele obs for dehydration, recurrent pleural effusion, and anorexia. Counseled pt/family regarding: lab results, diagnosis, need for follow-up, rad results - Departure Time of Disposition: 16:33 Departure Disposition: Observation (Tele) Clinical Impression: Squamous cell carcinoma of head and neck, Anorexia, Digitalis toxicity, Dehydration Condition: Fair Critical Care Time: No Referrals: LENORE BARRERA [LOCATION] -
[2017-07-24 14:39] LABS: Hematocrit 33.2 % (42-50); Hemoglobin 10.7 gm/dl (12.5-18.0); Mean Cell Volume 116.1 fl (78-100); Mean Corpuscular Hemoglobin 37.4 pg (26-32); Mean Corpuscular Hgb Concent. 32.2 g/dl (32-36); Mean Platelet Volume 10.9 fl (6-9.5); Platelet Count 189 K/mm3 (150-450); Red Blood Count 2.86 M/mm3 (4.1-5.6); Red Cell Distribution Width 15.2 % (11.5-14.0); White Blood Count 5.9 K/mm3 (4.0-10.5)
[2017-07-24 14:47] LABS: Lactic Acid 2.1 (0.4-2.0)
[2017-07-24] MEDS ORDERED: Sodium Chloride 0.9% 1000 ML 1,000 ML ONE (14:50)
[2017-07-24 14:56] LABS: INR 1.14 (0.8-3.0)
[2017-07-24 15:01] LABS: Appearance CLEAR (CLEAR)
[2017-07-24 15:02] LABS: Bilirubin SMALL (NEGATIVE); Glucose NEGATIVE (NEGATIVE); Ketones NEGATIVE (NEGATIVE); Leukocyte Esterase TRACE (NEGATIVE); Nitrite NEGATIVE (NEGATIVE); Protein,Urine Dip TRACE (Negative); Urobilinogen 4 mg/dL (0-1)
[2017-07-24 15:04] LABS: Eosinophil 7 % (0.00-3.0); Lymphocytes 7 % (24-44); Monocyte 6 % (0.0-12.0); Neutrophils 80 % (36.-66.); Total Cells Counted 100
[2017-07-24 15:05] LABS: ANISOCYTOSIS 1+; Macrocytosis 2+; Ovalocytes 1+; Polychromasia 1+
[2017-07-24 15:06] LABS: Platelet Estimate NORMAL (NORMAL)
[2017-07-24 15:10] LABS: ALBUMIN 2.9 g/dL (3.4-5.0); ANION GAP 14.3 MEQ/L (5-15); BILIRUBIN,TOTAL 0.7 mg/dL (0.2-1.0); Calcium 9.3 mg/dL (8.5-10.1); Carbon Dioxide 27.3 mEq/L (21-32); Creatinine 1 1.34 mg/dl (0.55-1.30); Potassium 3.8 mEq/L (3.5-5.1); Total Protein 7.5 gm/dL (6.4-8.2)
[2017-07-24 15:13] LABS: Bacteria FEW /HPF (NEGATIVE); Epithelial Cells RARE /HPF (FEW); Mucus SLIGHT /HPF (NEGATIVE)
[2017-07-24 15:22] LABS: DIGOXIN 1.7 ng/ml (0.5-1.5)
--- NOTE | 2017-07-24 16:00 | XRAY ---
Indication: Hypoxemia. Dehydration. Comparison: Chest exam April 09, 2017. 2 views of the abdomen demonstrates nonspecific nonobstructed bowel gas pattern with extensive scattered vascular calcifications, cholecystectomy clips, and prostate radiation seeds. Numerous overlying monitoring leads present. Visualized solid organs are unremarkable. Osseous structures intact with mild osteopenia and mild multilevel degenerative spondylosis. Single frontal chest demonstrates new large right effusion with adjacent atelectasis occupying 50% of the hemithorax. Also new small left base effusion/atelectasis. Heart is not enlarged and again demonstrates CABG surgery with left-sided AICD. Stable left hilar calcified node. Bony thorax intact with mild osteopenia. Impression: 1. Nonacute nonobstructed abdomen. 2. New bilateral pleural effusion/atelectasis, right greater than left without cardiomegaly.
[2017-07-24] MEDS ORDERED: PROVENTIL 2.5 MG/3 ML NEB IH PRN (18:02)
[2017-07-24] MEDS ORDERED: TYLENOL 325 MG PO PRN (18:02)
[2017-07-24] MEDS: Sodium Chloride 0.9% 1000 ML 1,000 ML IV SCH (18:48)
[2017-07-25] MEDS: Sodium Chloride 0.9% 1000 ML 1,000 ML IV SCH ×2 (02:10→15:23)
[2017-07-25 06:02] LABS: BASOPHIL % 0.3 % (0.0-0.4); Basophil (Absolute #) 0.02 (0-0.4); Eosinophil % 4.7 % (0.00-5.0); Eosinophil (Absolute #) 0.31 (0-0.5); Granulocyte Absolute (ANC) 5.09 (1.4-6.9); Granulocytes % 77.6 % (36.0-66.0); Hematocrit 35.7 % (42-50); Hemoglobin 11.4 gm/dl (12.5-18.0); Lymphocyte (Absolute #) 0.71 (1.0-4.6); Lymphocytes % 10.8 % (24.0-44.0); Mean Cell Volume 115.9 fl (78-100); Mean Corpuscular Hgb Concent. 31.9 g/dl (32-36); Mean Platelet Volume 10.6 fl (6-9.5); Monocyte (Absolute #) 0.43 (0.0-1.3); Monocytes % 6.6 % (0.0-12.0); Platelet Count 202 K/mm3 (150-450); Red Blood Count 3.08 M/mm3 (4.1-5.6); Red Cell Distribution Width 15.1 % (11.5-14.0); White Blood Count 6.6 K/mm3 (4.0-10.5)
[2017-07-25 06:55] LABS: ANION GAP 12.5 MEQ/L (5-15); BLOOD UREA NITROGEN 23 mg/dL (9-20); CHLORIDE 111 mEq/L (98-107); Carbon Dioxide 27.4 mEq/L (21-32); Creatinine 1 1.09 mg/dl (0.55-1.30); Glucose 83 MG/DL (70-110); Potassium 3.6 mEq/L (3.5-5.1); SODIUM 147 mEq/L (136-145)
--- NOTE | 2017-07-25 09:25 | PCM.HP ---
History of Present Illness - Chief Complaint Chief Complaint: dehydration History of Present Illness: is a 87 year old male who presented from assisted living for continued weight loss and refusal to eat or drink. He is demented, his and son are in the middle of a custody pastor currently. He denies pain, no nausea or vomiting at this time. - Review of Systems Constitutional: Weakness, Weight Loss Respiratory: No Cough, No Short Of Breath Cardiac: No Chest Pain, No Edema, No Syncope Abdominal/Gastrointestinal: No Abdominal Pain, No Nausea, No Vomiting, No Diarrhea Skin: No Rash All Other Systems: Reviewed and Negative Medications & Allergies Home Medications: Home Medication List Carvedilol 3.125 mg [Coreg 3.125 MG] 3.125 mg PO BID 04/09/17 [History Confirmed 07/24/17] Digoxin 0.125 mg Tablet [Lanoxin 0.125MG TABLET] 0.125 mg DAILY 04/09/17 [ History Confirmed 07/24/17] Levothyroxine Sodium [Synthroid] 125 mcg DAILY 04/09/17 [History Confirmed 07/24] Liothyronine Sodium [Cytomel] 20 mcg DAILY 04/09/17 [History Confirmed 07/24/17] Docusate Sodium 100 mg [Colace 100 MG] 100 mg PO BID #60 04/12/17 [Rx Confirmed 07/24/17] Ferrous Sulfate 325 mg [Feosol 325 mg] 325 mg PO DAILY #30 tablet [Rx Confirmed 07/24/17] Quetiapine Fumarate 25 mg [Seroquel 25 MG] 50 mg PO HS #30 tablet [Rx Confirmed 07/24/17] Amiodarone HCl 200 mg [Cordarone 200 MG] 200 mg PO DAILY 05/15/17 [ History Confirmed 07/24/17] Amlodipine Besylate 5 mg [Norvasc 5 mg] 5 mg PO DAILY 05/15/17 [History Confirmed 07/24/17] Aspirin 81 mg PO DAILY 05/15/17 [History Confirmed 07/24/17] Rosuvastatin Calcium [Crestor] 10 mg PO DAILY 05/15/17 [History Confirmed ] Docusate Sodium 100 mg [Colace 100 MG] 100 mg PO BID 07/24/17 [History Confirmed 07/24/17] Fluoxetine HCl 10 mg [Prozac 10 mg] 10 mg PO DAILY 07/24/17 [History Confirmed 07/24/17] Non-Formulary Drug [Non-Formulary Item] 500 mg PO DAILY 07/24/17 [History Confirmed 07/24/17] Non-Formulary Drug [Non-Formulary Item] 750 mg PO DAILY 07/24/17 [History Confirmed 07/24/17] [place]-3/Dha/Epa/Fish Oil [Fish Oil 500 mg Softgel] 1 each PO DAILY 07/24/17 [ History Confirmed 07/24/17] Polyethylene Glycol 3350 17 gm [Miralax Powder 17GM PACKET] 17 gm PO DAILY [History Confirmed 07/24/17] Ubidecarenone [Co Q-10] 100 mg PO DAILY 07/24/17 [History Confirmed 07/24/17] Vitamin E 400 Units [Vitamin E 400 UNIT SOFTGEL] 400 unit PO DAILY [History Confirmed 07/24/17] Allergies/Adverse Reactions: Allergies Allergy/AdvReac Type Severity Reaction Status Date / Time No Known Drug Allergies Allergy Verified 05/15/17 09:07 - Past Medical History Past Medical History: Yes Neurological History: No Pertinent History ENT History: No Pertinent History Cardiac History: Congenital Heart Disease Respiratory History: COPD Endocrine Medical History: No Pertinent History Musculoskelatal History: No Pertinent History GI Medical History: No Pertinent History History: No Pertinent History Pyscho-Social History: No Pertinent History Male Reproductive Disorders: No Pertinent History Comment: Heart Disease. AICD. Head&Neck Squamous Cell Cancer. anemia - Past Surgical History Past Surgical History: Yes Neuro Surgical History: No Pertinent History Cardiac History: CABG, Cardiac Catheterization, Internal Defibrillator, Pacemaker Respiratory Surgery: No Pertinent History GI Surgical History: Appendectomy, Cholecystectomy Genitourinary Surgical Hx: Other Male Surgical History: No Pertinent History Other Surgical History: kidney stone removal - Social History Smoking Status: Never smoker Exposure to second hand smoke: No Alcohol: None Drug Use: none - Physical Exam Vital Signs: Vital Signs - 24 hr Temp Pulse Resp BP Pulse Ox 07/25/17 07:34 98.2 F 62 18 136/63 91 L 07/25/17 07:31 60 24 93 L 07/25/17 04:00 98.4 F 64 20 148/65 91 L 07/25/17 00:00 98.7 F 60 24 151/70 90 L 07/24/17 21:33 59 L 20 94 L 07/24/17 20:00 98.0 F 61 20 134/63 94 L 07/24/17 18:05 98.2 F 60 18 148/67 92 L 07/24/17 18:04 98.2 F 60 148/67 07/24/17 18:02 98.2 F 60 18 148/67 90 L 07/24/17 16:34 77 L 07/24/17 16:18 60 18 129/66 98 07/24/17 14:11 16 77 L 07/24/17 14:02 97.9 F 60 18 92 L Oxygen-Last 24 hours O2 Percentage 2 Liters = 28% O2 Percentage 2 Liters = 28% O2 Percentage 2 Liters = 28% O2 Percentage 2 Liters = 28% O2 Percentage 2 Liters = 28% O2 Percentage 2 Liters = 28% O2 Percentage 3 Liters = 32% General Appearance: cachetic, thin Neurologic Exam: alert Respiratory Exam: diminished breath sounds Cardiovascular Exam: regular rate/rhythm, normal heart sounds, normal peripheral pulses Gastrointestinal/Abdomen Exam: soft, normal bowel sounds, No tenderness, No mass Skin Exam: normal color, warm, dry, No rash Results - Labs Lab/Micro Results: Lab Results-Last 24 Hours 07/25/17 07/25/17 Range/Units 05:34 05:34 WBC 6.6 (4.0-10.5) K/mm3 RBC 3.08 L (4.1-5.6) M/mm3 Hgb 11.4 L (12.5-18.0) gm/dl Hct 35.7 L (42-50) % MCV 115.9 H (78-100) fl MCH 37.0 H (26-32) pg MCHC 31.9 L (32-36) g/dl RDW 15.1 H (11.5-14.0) % Plt Count 202 (150-450) K/mm3 MPV 10.6 H (6-9.5) fl Gran % 77.6 H (36.0-66.0) % Lymphocytes % 10.8 L (24.0-44.0) % Monocytes % 6.6 (0.0-12.0) % Eosinophils % 4.7 (0.00-5.0) % Basophils % 0.3 (0.0-0.4) % Basophils # 0.02 (0-0.4) Sodium 147 H (136-145) mEq/L Potassium 3.6 (3.5-5.1) mEq/L Chloride 111 H (98-107) mEq/L Carbon Dioxide 27.4 (21-32) mEq/L Anion Gap 12.5 (5-15) MEQ/L BUN 23 H (9-20) mg/dL Creatinine 1.09 (0.55-1.30) mg/dl Estimated GFR > 60 ML/MIN Glucose 83 (70-110) MG/DL Calcium 9.0 (8.5-10.1) mg/dL - Other Procedures and Tests Respiratory Therapy 07/24/17 23:00 neb [Respiratory Nebulizer] PRN Assessment/Plan (1) Pleural effusion Current Visit: Yes Status: Acute Assessment & Plan: patient hypoxic on arrival, discussed with Chuck and his and they are agreeable to pleurocentesis in radiology to alleviate symptoms. has been drained at [facility] in the past with negative cytology and culture, c/w transudate last time. Code(s): J90 - PLEURAL EFFUSION, NOT ELSEWHERE CLASSIFIED (2) Hypoxia Current Visit: Yes Status: Acute Assessment & Plan: stable on oxygen at this time, appears to be related to pleural effusion, right greater than 50% Code(s): R09.02 - HYPOXEMIA (3) Anorexia Current Visit: Yes Status: Acute Assessment & Plan: discussed surgery consult/feeding tube placement. patient and his are uncertain as to whether they are interested. I did discuss that nutritional status and further weight loss could cause and they both seem to understand this. they will consider and discuss feeding tube. in the meantime encouraged him to try and push po intake Code(s): R63.0 - ANOREXIA (4) Dehydration Current Visit: Yes Status: Acute Assessment & Plan: IV fluids ordered Code(s): E86.0 - DEHYDRATION
[2017-07-25 10:41] LABS: INR 1.11 (0.8-3.0)
[2017-07-25] MEDS ORDERED: MEDICATION INTERVENTION MC SCH (11:00)
[2017-07-25] MEDS: Miralax Powder 17GM PACKET PO SCH (11:01)
[2017-07-25] MEDS: SYNTHROID 125 MCG PO SCH (11:01)
[2017-07-25] MEDS: PROZAC 10 MG PO SCH (11:02)
[2017-07-25] MEDS: Cordarone 200 MG PO SCH (11:02)
[2017-07-25] MEDS: NORVASC 5 MG PO SCH (11:02)
[2017-07-25] MEDS: Colace 100 MG PO SCH ×2 (11:02→22:43)
--- NOTE | 2017-07-25 13:59 | XRAY ---
Indication: Follow-up right thoracentesis. Comparison: One day earlier. Single AP chest obtained in expiration demonstrates mild/moderate clearing of the previous right effusion with moderate residual but no pneumothorax. Stable left base effusion/atelectasis. Heart and mediastinal structures stable and within normal limits.
--- NOTE | 2017-07-25 14:05 | XRAY ---
Indication: Right pleural effusion. Informed consent obtained. Initial sonographic imaging of the right lower back was performed for localization. Skin was prepped and draped in sterile fashion. 1% lidocaine plain used for local anesthesia. Tiny skin incision made. Then a 5 [place] Livelens thoracentesis catheter with introducer needle was inserted into the right hemithorax. Small flash of effusion seen in the syringe at which point the outer catheter was advanced and the inner needle removed. Catheter was then connected to a Vacutainer. Approximately 1.5 L of yellow tinged clear transudative fluid was aspirated at which point the patient started coughing significantly and complained of difficulty breathing. Catheter was immediately removed and the procedure was terminated. Patient stopped coughing and denied difficulty breathing. Fluid was disposed of properly. Repeat sonogram demonstrates marked improvement with still mild/moderate effusion present. Hemostasis achieved using digital pressure over the puncture site. Small Band-Aid applied. Postoperative instructions and orders given. Impression: Technically successful right chest thoracentesis using ultrasound guidance for therapeutic purpose. Premature termination due to patient coughing and difficulty breathing. Approximately 1.5 L aspirated with still residual effusion. No immediate complications.
[2017-07-25] MEDS ORDERED: Seroquel 25 MG PO SCH (22:00)
[2017-07-25] MEDS: Coreg 3.125 MG PO SCH (22:43)
[2017-07-26] MEDS: Sodium Chloride 0.9% 1000 ML 1,000 ML IV SCH (04:27)
[2017-07-26 06:15] LABS: Granulocyte Absolute (ANC) 6.01 (1.4-6.9); Hematocrit 30.2 % (42-50); Hemoglobin 9.8 gm/dl (12.5-18.0); Mean Corpuscular Hgb Concent. 32.5 g/dl (32-36); Mean Platelet Volume 10.8 fl (6-9.5); Platelet Count 161 K/mm3 (150-450); Red Blood Count 2.65 M/mm3 (4.1-5.6); Red Cell Distribution Width 14.7 % (11.5-14.0); White Blood Count 7.1 K/mm3 (4.0-10.5)
[2017-07-26 06:27] LABS: Mean Corpuscular Hemoglobin 36.9 pg (26-32)
[2017-07-26 06:52] LABS: ALBUMIN 2.1 g/dL (3.4-5.0); ALKALINE PHOSPHATASE 69 U/L (46-116); ANION GAP 9.3 MEQ/L (5-15); BLOOD UREA NITROGEN 19 mg/dL (9-20); CHLORIDE 109 mEq/L (98-107); Calcium 8.1 mg/dL (8.5-10.1); Carbon Dioxide 28.1 mEq/L (21-32); Creatinine 1 1.03 mg/dl (0.55-1.30); Glucose 93 MG/DL (70-110); Potassium 3.6 mEq/L (3.5-5.1); SGOT/AST 25 U/L (15-37); SGPT/ALT 23 U/L (12-78); SODIUM 143 mEq/L (136-145); Total Protein 5.8 gm/dL (6.4-8.2)
[2017-07-26 07:34] LABS: BAND 4 % (0.0-2.0); Basophilic Stippling 2+; Eosinophil 1 % (0.00-3.0); Hypochromia 1+; Lymphocytes 7 % (24-44); Macrocytosis 1+; Monocyte 6 % (0.0-12.0); Neutrophils 82 % (36.-66.); Platelet Estimate NORMAL (NORMAL); Total Cells Counted 100
[2017-07-26 08:00] VITALS: BP 123/60; PULSE 60; O2SAT 96
[2017-07-26] MEDS: Coreg 3.125 MG PO SCH (08:13)
[2017-07-26] MEDS: SYNTHROID 125 MCG PO SCH (08:13)
[2017-07-26] MEDS: PROZAC 10 MG PO SCH (08:13)
[2017-07-26] MEDS: Miralax Powder 17GM PACKET PO SCH (08:14)
[2017-07-26] MEDS: Colace 100 MG PO SCH (08:14)
[2017-07-26] MEDS: NORVASC 5 MG PO SCH (08:14)
[2017-07-26] MEDS: Cordarone 200 MG PO SCH (08:14)
--- NOTE | 2017-07-26 08:55 | PCM.DS ---
Discharge Summary Date of Admission: 07/24/17 17:56 Admitting Physician: SEBASTIÁN PUCKETT Primary Care Provider: LISSA TINOCO Allergies Allergies No Known Drug Allergies Allergy (Verified 05/15/17 09:07) Hospital Summary - Hospital Course Hospital Course: patient was admitted with weakness, refusal to eat. 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 his labs are fairly unremarkable, had recurrent pleural effusion that was drained on 07/25/17 with 1.5L transudate removed. - Vitals & Intake/Output Vital Signs: Vital Signs Temperature 97.8 F 07/26/17 07:59 Pulse Rate 60 07/26/17 07:59 Respiratory Rate 18 07/26/17 07:59 Blood Pressure 123/60 07/26/17 07:59 O2 Sat by Pulse Oximetry 96 07/26/17 07:59 Oxygen-Last Documented O2 Percentage 6 Liters = 44% Intake & Output: Intake & Output 07/23/17 07/24/17 07/25/17 07/26/17 11:59 11:59 11:59 11:59 Intake Total 1349 2129 Output Total 650 900 Balance 699 1229 Weight 55 kg - Lab Result Diagrams: 07/26/17 06:06 07/26/17 06:06 Lab Results-Last 24 Hrs: Lab Results-Last 24 Hours 07/25/17 07/26/17 07/26/17 Range/Units 05:10 06:06 06:06 WBC 7.1 (4.0-10.5) K/mm3 RBC 2.65 L (4.1-5.6) M/mm3 Hgb 9.8 L (12.5-18.0) gm/dl Hct 30.2 L (42-50) % MCV 114.0 H (78-100) fl MCH 36.9 H (26-32) pg MCHC 32.5 (32-36) g/dl RDW 14.7 H (11.5-14.0) % Plt Count 161 (150-450) K/mm3 MPV 10.8 H (6-9.5) fl Segmented Neutrophils 82 H (36.-66.) % Band Neutrophils 4 H (0.0-2.0) % Lymphocytes (Manual) 7 L (24-44) % Monocytes (Manual) 6 (0.0-12.0) % Eosinophils (Manual) 1 (0.00-3.0) % Differential Comment ABNORMAL Platelet Estimate NORMAL (NORMAL) Hypochromasia 1+ Basophilic Stippling 2+ Macrocytosis 1+ INR 1.11 (0.8-3.0) APTT 29.0 (24.1-36.1) SECONDS Sodium 143 (136-145) mEq/L Potassium 3.6 (3.5-5.1) mEq/L Chloride 109 H (98-107) mEq/L Carbon Dioxide 28.1 (21-32) mEq/L Anion Gap 9.3 (5-15) MEQ/L BUN 19 (9-20) mg/dL Creatinine 1.03 (0.55-1.30) mg/dl Estimated GFR > 60 ML/MIN Glucose 93 (70-110) MG/DL Calcium 8.1 L (8.5-10.1) mg/dL Magnesium 1.8 (1.8-2.4) mg/dL Total Bilirubin 0.60 (0.2-1.0) mg/dL AST 25 (15-37) U/L ALT 23 (12-78) U/L Alkaline Phosphatase 69 (46-116) U/L Serum Total Protein 5.8 L (6.4-8.2) gm/dL Albumin 2.1 L (3.4-5.0) g/dL - Radiology Exams Ordered Rad Exams-Entire Visit: Radiology Procedures Category Date Time Status CHEST 1 VIEW (PORTABLE) Routine Exams 07/25/17 13:36 Completed THORACENTESIS [US] Urgent Exams 07/25/17 13:49 Completed - Procedures and Test Procedures and Tests throughout Hospitalization: Therapy Orders & Screens 07/24/17 23:00 neb [Respiratory Nebulizer] PRN Comment: ALB Q4PRN Diagnosis: dehydration Discharge Exam General Appearance: no apparent distress, alert, cachetic, thin Skin Exam: normal color, warm, dry Respiratory Exam: normal breath sounds, lungs clear, No respiratory distress Cardiovascular Exam: regular rate/rhythm, normal heart sounds Gastrointestinal/Abdomen Exam: soft, No tenderness, No mass Final Diagnosis/Problem List - Final Discharge Diagnosis/Problem (1) Pleural effusion Current Visit: Yes Status: Acute Assessment & Plan: s/p pleuracentesis with 1.5L removed (2) Hypoxia Current Visit: Yes Status: Acute (3) Anorexia Current Visit: Yes Status: Acute Assessment & Plan: had a long discussion with patient regarding options of feeding tube vs trying to push nutrtion. he and his understand that if he continues to lose weight he will likely and he understands this and elects not to have a PEG tube placed at this time for nutrition. discussed trying to push boost/ensure and making himself eat even when he is not hungry but he continues to fail. offered hospice referral but patient and his don't seem interested at this time. he will return to [facility] living. He is an SCO code status at this time. (4) Dehydration Current Visit: Yes Status: Acute Assessment & Plan: resolved (5) Digitalis toxicity Current Visit: Yes Status: Acute Assessment & Plan: has been discontinued due to elevated level on arrival, will f/u with Dr Sanders after discharge. - Discharge Disposition: Home, Self-Care Condition: Fair Prescriptions: Continue Liothyronine Sodium [Cytomel] 20 mcg DAILY Levothyroxine Sodium [Synthroid] 125 mcg DAILY Digoxin 0.125 mg Tablet [Lanoxin 0.125MG TABLET] 0.125 mg DAILY Carvedilol 3.125 mg [Coreg 3.125 MG] 3.125 mg PO BID Docusate Sodium 100 mg [Colace 100 MG] 100 mg PO BID #60 Ferrous Sulfate 325 mg [Feosol 325 mg] 325 mg PO DAILY #30 tablet Quetiapine Fumarate 25 mg [Seroquel 25 MG] 50 mg PO HS #30 tablet Aspirin 81 mg PO DAILY Amiodarone HCl 200 mg [Cordarone 200 MG] 200 mg PO DAILY Amlodipine Besylate 5 mg [Norvasc 5 mg] 5 mg PO DAILY Rosuvastatin Calcium [Crestor] 10 mg PO DAILY Non-Formulary Drug [Non-Formulary Item] 750 mg PO DAILY Ubidecarenone [Co Q-10] 100 mg PO DAILY Vitamin E 400 Units [Vitamin E 400 UNIT SOFTGEL] 400 unit PO DAILY Docusate Sodium 100 mg [Colace 100 MG] 100 mg PO BID [place]-3/Dha/Epa/Fish Oil [Fish Oil 500 mg Softgel] 1 each PO DAILY Non-Formulary Drug [Non-Formulary Item] 500 mg PO DAILY Fluoxetine HCl 10 mg [Prozac 10 mg] 10 mg PO DAILY Polyethylene Glycol 3350 17 gm [Miralax Powder 17GM PACKET] 17 gm PO DAILY Instructions: Dehydration, Adult (DC) Follow up with: SHERYL SANDERS [CONSULTING PHYSICIAN] - 1 Week
[2017-07-26] MEDS ORDERED: FEOSOL 325 MG PO SCH (10:00)
[2017-07-26] MEDS ORDERED: LIOTHYRONINE SODIUM PO SCH (10:00)
== END 2017-07-26 10:29 | disposition home or self-care (01) | DRG 188 ==
LOC: ED 14:00 → MED SURG 17:56 → OBSVTOIN 17:56
PROVIDERS: ADMIT Family Medicine; ATTEND Family Medicine
DX: J90 Pleural effusion, not elsewhere classified (principal); R09.02 Hypoxemia; T46.0X5A Adverse effect of cardiac-stimulant glycosides and drugs of similar action, initial encounter; R63.0 Anorexia; J44.9 Chronic obstructive pulmonary disease, unspecified; Q24.9 Congenital malformation of heart, unspecified; E86.0 Dehydration; Z79.899 Other long term (current) drug therapy; I51.9 Heart disease, unspecified; Z95.1 Presence of aortocoronary bypass graft; Z95.810 Presence of automatic (implantable) cardiac defibrillator; D04.4 Carcinoma in situ of skin of scalp and neck; D64.9 Anemia, unspecified
CPT/HCPCS: 32557; 36415; 71045; 74022; 80048; 80053; 80162; 81000; 83605; 83735; 84443; 85025; 85610; 85730; 87086; 93005; 94640; 94760; 96360; 96361; 99285; A9270-GY

== ENCOUNTER 2017-07-30 15:16 | Emergency (ER) | payer MEDICARE ==
[2017-07-30] MEDS ORDERED: TENIVAC VIAL IM ONE ×2 (15:40→16:13)
--- NOTE | 2017-07-30 16:03 | ERPHSYRPT ---
- History of Present Illness Time Seen by Provider: 07/30/17 15:34 Source: patient, family (), EMS Patient Subjective Stated Complaint: Medics states "He fell and has a laceration on the back of his head, bleeding is controlled, he also has a skin tear on the right forearm, bleeding controlled. unknown what made him fall. He got a little nauseous but did not vomit.". Pt states "I am not sure what happened, I guess I tripped." Triage Nursing Assessment: Pt alert and oriented X 3, skin pwd. PT able to speak in clear full sentences. Pt denied any pain, denied any difficutly breathing. small laceration noted to left occiput, bleeding controlled, skin tear noted to right forearm, bleeding controlled. Physician History: CC: fall Hx: 87 y/o patient of Dr Tinoco who lives at [facility]. He was admitted last week with dig toxicity and pleural effusions. He has gone back home. Not eating. Losing weight. Now on [facility]. He fell today. Cut to his head. Uncertain LOC. He has skin tear to the right arm. No other complaints. Occurred: just prior to arrival Reason for Fall: unknown Allergies/Adverse Reactions: No Known Drug Allergies Allergy (Verified 05/15/17 09:07) Home Medications: Carvedilol 3.125 mg [Coreg 3.125 MG] 3.125 mg PO BID 04/09/17 [History] Digoxin 0.125 mg Tablet [Lanoxin 0.125MG TABLET] 0.125 mg DAILY 04/09/17 [ History] Levothyroxine Sodium [Synthroid] 125 mcg DAILY 04/09/17 [History] Liothyronine Sodium [Cytomel] 20 mcg DAILY 04/09/17 [History] Amiodarone HCl 200 mg [Cordarone 200 MG] 200 mg PO DAILY 05/15/17 [History ] Amlodipine Besylate 5 mg [Norvasc 5 mg] 5 mg PO DAILY 05/15/17 [History] Aspirin 81 mg PO DAILY 05/15/17 [History] Rosuvastatin Calcium [Crestor] 10 mg PO DAILY 05/15/17 [History] Docusate Sodium 100 mg [Colace 100 MG] 100 mg PO BID 07/24/17 [History] Fluoxetine HCl 10 mg [Prozac 10 mg] 10 mg PO DAILY 07/24/17 [History] Non-Formulary Drug [Non-Formulary Item] 500 mg PO DAILY 07/24/17 [History] Non-Formulary Drug [Non-Formulary Item] 750 mg PO DAILY 07/24/17 [History] [place]-3/Dha/Epa/Fish Oil [Fish Oil 500 mg Softgel] 1 each PO DAILY 07/24/17 [ History] Polyethylene Glycol 3350 17 gm [Miralax Powder 17GM PACKET] 17 gm PO DAILY [History] Ubidecarenone [Co Q-10] 100 mg PO DAILY 07/24/17 [History] Vitamin E 400 Units [Vitamin E 400 UNIT SOFTGEL] 400 unit PO DAILY [History] Hx Tetanus, Diphtheria Vaccination/Date Given: Yes Hx Influenza Vaccination/Date Given: Yes Hx Pneumococcal Vaccination/Date Given: No Immunizations Up to Date: Yes - Review of Systems Constitutional: Fatigue, Malaise, Weakness, Weight Loss, No Fever, No Chills Eyes: No Vision Changes Respiratory: Other (new O2 requirement), No Dyspnea Cardiac: No Chest Pain Abdominal/Gastrointestinal: No Abdominal Pain, No Nausea, No Vomiting, No Diarrhea Musculoskeletal: No Back Pain, No Neck Pain, No Joint Pain Neurological: No Focal Weakness All Other Systems: Reviewed and Negative - Past Medical History Pertinent Past Medical History: Yes Neurological History: No Pertinent History ENT History: No Pertinent History Cardiac History: Congenital Heart Disease Respiratory History: COPD Endocrine Medical History: No Pertinent History Musculoskeletal History: No Pertinent History GI Medical History: No Pertinent History History: No Pertinent History Psycho-Social History: No Pertinent History Male Reproductive Disorders: No Pertinent History Other Medical History: Heart Disease. AICD. Head&Neck Squamous Cell Cancer. anemia - Past Surgical History Past Surgical History: Yes Neuro Surgical History: No Pertinent History Cardiac: CABG, Cardiac Catheterization, Internal Defibrillator, Pacemaker Respiratory: No Pertinent History Gastrointestinal: Appendectomy, Cholecystectomy Genitourinary: Other Male Surgical History: No Pertinent History Other Surgical History: kidney stone removal - Social History Smoking Status: Never smoker Exposure to second hand smoke: No Drug Use: none Patient Lives Alone: No - Nursing Vital Signs Nursing Vital Signs: Initial Vital Signs Temperature 97.6 F 07/30/17 15:24 Pulse Rate 60 07/30/17 15:24 Respiratory Rate 18 07/30/17 15:24 Blood Pressure 130/62 07/30/17 15:24 O2 Sat by Pulse Oximetry 88 L 07/30/17 15:24 Pain Scale Pain Intensity 0 - Larry Coma Score Best Eye Response (Larry): (4) open spontaneously Best Verbal Response ([place]): (5) oriented Best Motor Response (Larry): (6) obeys commands Larry Total: 15 - Physical Exam General Appearance: alert Head Injury: lacerations (2cm left scalp without stepoff) Eye Exam: PERRL/EOMI ENT Exam: airway nml Neck Exam: No pain on movement of neck, No mid-line tenderness Respiratory/Chest Exam: decreased breath sounds Cardiovascular Exam: regular rate/rhythm Gastrointestinal Exam: soft, No tenderness, No distention Extremity Exam: other (skin tear right elbow, normal ROM, no apparent bony tenderness) Neurologic Exam: alert, oriented x 3, cooperative, sensation nml, No motor deficits Skin Exam: warm, dry SpO2 Interpretation: hypoxic, O2 applied SpO2: 88 Oxygen Delivery: Room Air Procedures - Laceration/Wound Repair scalp Wound Location: Left Wound Length (cm): 3 Wound's Depth, Shape: irregular, stellate Wound Explored: no foreign body noted Hibiclens Prep: Yes Anesthesia: local, 1% lidocaine w/ Epi Wound Repaired With: [place] (#4) - Course Nursing assessment & vital signs reviewed: Yes - Radiology Exams cxr X-ray Interpretation: Teleradiologist Report (increased pleural effusion) - CT Exams head CT Interpretation: Tele-radiologist Report (old stroke, no bleeding) Ordered Tests: Active Orders 24 hr Category Date Time Status EKG-ER Only STAT Care 07/30/17 15:41 Active IV Insertion STAT Care 07/30/17 15:41 Active Wound Care STAT Care 07/30/17 15:40 Active CHEST 1 VIEW (PORTABLE) Stat Exams 07/30/17 15:41 Completed HEAD WITHOUT CONTRAST [CT] Stat Exams 07/30/17 15:41 Completed BMP Stat Lab 07/30/17 Completed CBC W DIFF Stat Lab 07/30/17 15:41 Completed DIGOXIN Stat Lab 03/05/18 Completed Medication Summary Discontinued Medications Generic Name Dose Route Start Last Admin Trade Name Elly PRN Reason Stop Dose Admin Lidocaine/Epinephrine 5 ml 07/30/17 17:20 Xylocaine 1%/Epi 1:622813 Mdv 20 Ml IJ 07/30/17 17:21 STAT ONE Lidocaine/Epinephrine Confirm 07/30/17 17:17 Xylocaine 1%/Epi 1:509133 Mdv 20 Ml Administered 07/30/17 17:18 Dose 5 ml .ROUTE .STK-MED ONE Tetanus/Diphtheria Toxoids Adsorbed 0.5 ml 07/30/17 15:40 07/30/17 16:17 Tenivac Vial IM 07/30/17 15:41 0.5 ml .ONCE ONE Administration Tetanus/Diphtheria Toxoids Adsorbed Confirm 07/30/17 16:13 Tenivac Vial Administered 07/30/17 16:14 Dose 0.5 ml IM .STK-MED ONE Lab/Rad Data: Laboratory Result Diagrams 07/30/17 15:41 07/30/17 Unknown Laboratory Results 07/30/17 07/30/17 07/30/17 Range/Units Unknown Unknown 15:41 WBC 5.4 (4.0-10.5) K/mm3 RBC 2.89 L (4.1-5.6) M/mm3 Hgb 10.7 L (12.5-18.0) gm/dl Hct 32.6 L (42-50) % MCV 112.8 H (78-100) fl MCH 37.0 H (26-32) pg MCHC 32.8 (32-36) g/dl RDW 15.0 H (11.5-14.0) % Plt Count 203 (150-450) K/mm3 MPV 10.8 H (6-9.5) fl Gran % 81.3 H (36.0-66.0) % Lymphocytes % 7.4 L (24.0-44.0) % Monocytes % 7.6 (0.0-12.0) % Eosinophils % 3.5 (0.00-5.0) % Basophils % 0.2 (0.0-0.4) % Basophils # 0.01 (0-0.4) Sodium 141 (137-145) mmol/L Potassium 3.8 (3.5-5.1) mmol/L Chloride 105 (98-107) mEq/L Carbon Dioxide 29 (22-30) mmol/L Anion Gap 11.3 MEQ/L BUN 20 (9-20) mg/dL Creatinine 1.25 (0.66-1.25) mg/dl Estimated GFR 58 ML/MIN Glucose 112 H (74-106) mg/dL Calcium 9.3 (8.4-10.2) mg/dL Digoxin 1.8 (0.8-2.0) ng/mL - Progress Progress Note: 07/30/17 18:09 Hospice nurse here. Pt will go home with fall precautions and they will arrange oxygen. Spoke to Dr Tinoco. He is on hospice and end stage for comfort care. Counseled pt/family regarding: lab results, diagnosis, need for follow-up, rad results - Departure Time of Disposition: 18:10 Departure Disposition: Home Clinical Impression: Fall, Pleural effusion, Laceration of head, Hypoxia Condition: Stable Critical Care Time: No Referrals: LISSA TINOCO MD [Primary Care Provider] - Instructions: Preventing Falls Additional Instructions: LACERATION CARE 1. Do not use peroxide, merthiolate, alcohol, or betadine. 2. Keep wound clean and dry. 3. Change dressing if it becomes wet or soiled. 4. If you must work, wear protective covering. 5. You may return to the emergency department or see your family physician for suture removal. 6. See your family physician or return to the emergency department for any of the following signs or symptoms: A. Redness B. Swelling C. Discolored drainage D. Red streaks E. Elevated temperature F. Other signs of infection Staple removal in 10 days. HEAD INJURY 1. A responsible person should observe the patient at home for 24 hours. 2. If any of the following signs or symptoms are observed or occur, call your family physician or return to the emergency department: A. Behavior change B. Persistent vomiting C. Unequal pupils D. Increasing drowsiness E. Difficulty in arousing the patient F. Severe headache G. Lump on head increasing in size Oxygen per hospice. Fall precautions.
--- NOTE | 2017-07-30 16:12 | XRAY ---
Indication: Left occipital laceration following fall. History head and neck cancer. Multiple contiguous axial images obtained through the head without contrast. Comparison: April 10, 2017. Stable age-appropriate global atrophy, moderate periventricular degenerative microvascular ischemia bilaterally, and small old right cerebellar infarct. No acute intracranial hemorrhage, abnormal extra-axial fluid collection, or mass effect. Fourth ventricle is midline. Bony calvarium intact. Visualized paranasal sinuses and mastoid air cells are clear. 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 CTDI 50.62
--- NOTE | 2017-07-30 16:14 | XRAY ---
Indication: Status post fall. History of head and neck cancer. Comparison: July 25, 2017. Portable chest demonstrates increasing large right effusion/atelectasis occupying more than 50% of the hemithorax. Stable small left base effusion/atelectasis. Heart and mediastinal structures within normal limits again with left-sided AICD and CABG surgery.
[2017-07-30 17:01] LABS: ANION GAP 11.3 MEQ/L; Calcium 9.3 mg/dL (8.4-10.2); Creatinine 1 1.25 mg/dl (0.66-1.25); Potassium 3.8 mmol/L (3.5-5.1)
[2017-07-30] MEDS ORDERED: XYLOCAINE 1%/Epi 1:100000 MDV 20 ML ONE (17:17)
[2017-07-30] MEDS ORDERED: XYLOCAINE 1%/Epi 1:100000 MDV 20 ML IJ ONE (17:20)
[2017-07-30 17:26] LABS: BASOPHIL % 0.2 % (0.0-0.4); Basophil (Absolute #) 0.01 (0-0.4); Eosinophil % 3.5 % (0.00-5.0); Eosinophil (Absolute #) 0.19 (0-0.5); Granulocyte Absolute (ANC) 4.39 (1.4-6.9); Granulocytes % 81.3 % (36.0-66.0); Hematocrit 32.6 % (42-50); Hemoglobin 10.7 gm/dl (12.5-18.0); Lymphocytes % 7.4 % (24.0-44.0); Mean Cell Volume 112.8 fl (78-100); Mean Corpuscular Hgb Concent. 32.8 g/dl (32-36); Mean Platelet Volume 10.8 fl (6-9.5); Monocyte (Absolute #) 0.41 (0.0-1.3); Monocytes % 7.6 % (0.0-12.0); Platelet Count 203 K/mm3 (150-450); Red Blood Count 2.89 M/mm3 (4.1-5.6); White Blood Count 5.4 K/mm3 (4.0-10.5)
[2017-07-30 18:26] LABS: Slide Review 1 YES
[2017-07-30 19:00] VITALS: BP 135/56; PULSE 74; O2SAT 95
== END 2017-07-30 19:11 | disposition home or self-care (01) ==
LOC: ED 15:16
PROC: 0HQ0XZZ Repair Scalp Skin, External Approach (ICD-10-PCS; principal; 2017-07-30)
DX: S01.01XA Laceration without foreign body of scalp, initial encounter (principal); W19.XXXA Unspecified fall, initial encounter; Z79.899 Other long term (current) drug therapy; R09.02 Hypoxemia; J90 Pleural effusion, not elsewhere classified; R53.83 Other fatigue; S51.011A Laceration without foreign body of right elbow, initial encounter
CPT/HCPCS: 12002; 36415; 70450; 71045; 80048; 80162; 85025; 90471; 90714; 99283; 99285

== ENCOUNTER 2017-07-31 01:43 | Emergency (ER) | payer MEDICARE ==
--- NOTE | 2017-07-31 02:24 | ERPHSYRPT ---
- History of Present Illness Time Seen by Provider: 07/31/17 02:03 Source: patient, EMS Exam Limitations: clinical condition Patient Subjective Stated Complaint: per ems, pt fell again and reopened a skin tear on his rt arm. Triage Nursing Assessment: pt alert and oriented, asnwers questions approp. pt arrive per ambulance. transfer to stretcher with assist of 3. respirations nonlabored with lungs cta. ski tear x5 to rt arm/elbow. abrasion and skin tear to lt lower back. pt denies pain elsewhere. [place] to lt head- no bleeding Physician History: PATIENT WITH A HISTORY OF COPD, CHF FELL AGAIN TONIGHT SUSTAINED INJURY TO HIS RIGHT ELBOW. HE RIPPED THE STERI STRIPS OFF HIS RIGHT. DENIES HEAD OR NECK INJURY, DENIES LOSS OF CONSCIOUSNESS. Occurred: just prior to arrival Reason for Fall: unknown Injuries/Pain Location: upper extremity Loss of Consciousness: no loss of consciousness Quality: aching Severity of Pain-Max: none Severity of Pain-Current: none Associated Symptoms (Fall): denies symptoms Allergies/Adverse Reactions: No Known Drug Allergies Allergy (Verified 07/31/17 03:31) Home Medications: Carvedilol 3.125 mg [Coreg 3.125 MG] 3.125 mg PO BID 04/09/17 [History] Digoxin 0.125 mg Tablet [Lanoxin 0.125MG TABLET] 0.125 mg DAILY 04/09/17 [ History] Levothyroxine Sodium [Synthroid] 125 mcg DAILY 04/09/17 [History] Liothyronine Sodium [Cytomel] 20 mcg DAILY 04/09/17 [History] Amiodarone HCl 200 mg [Cordarone 200 MG] 200 mg PO DAILY 05/15/17 [History ] Amlodipine Besylate 5 mg [Norvasc 5 mg] 5 mg PO DAILY 05/15/17 [History] Aspirin 81 mg PO DAILY 05/15/17 [History] Rosuvastatin Calcium [Crestor] 10 mg PO DAILY 05/15/17 [History] Docusate Sodium 100 mg [Colace 100 MG] 100 mg PO BID 07/24/17 [History] Fluoxetine HCl 10 mg [Prozac 10 mg] 10 mg PO DAILY 07/24/17 [History] Non-Formulary Drug [Non-Formulary Item] 500 mg PO DAILY 07/24/17 [History] Non-Formulary Drug [Non-Formulary Item] 750 mg PO DAILY 07/24/17 [History] [place]-3/Dha/Epa/Fish Oil [Fish Oil 500 mg Softgel] 1 each PO DAILY 07/24/17 [ History] Polyethylene Glycol 3350 17 gm [Miralax Powder 17GM PACKET] 17 gm PO DAILY [History] Ubidecarenone [Co Q-10] 100 mg PO DAILY 07/24/17 [History] Vitamin E 400 Units [Vitamin E 400 UNIT SOFTGEL] 400 unit PO DAILY [History] Hx Tetanus, Diphtheria Vaccination/Date Given: Yes (07/30/17) Hx Influenza Vaccination/Date Given: Yes Hx Pneumococcal Vaccination/Date Given: No Immunizations Up to Date: Yes - Review of Systems Constitutional: No Fever, No Chills Eyes: No Symptoms Ears, Nose, & Throat: No Symptoms Respiratory: No Cough, No Dyspnea Cardiac: No Symptoms, No Chest Pain, No Edema, No Syncope Abdominal/Gastrointestinal: No Abdominal Pain, No Nausea, No Vomiting, No Diarrhea Genitourinary Symptoms: No Dysuria Musculoskeletal: Injury, Joint Pain, No Back Pain, No Neck Pain Skin: No Rash Neurological: No Dizziness, No Focal Weakness, No Sensory Changes Psychological: No Symptoms Endocrine: No Symptoms All Other Systems: Reviewed and Negative - Past Medical History Pertinent Past Medical History: Yes Neurological History: No Pertinent History ENT History: No Pertinent History Cardiac History: Congenital Heart Disease Respiratory History: COPD Endocrine Medical History: No Pertinent History Musculoskeletal History: No Pertinent History GI Medical History: No Pertinent History History: No Pertinent History Psycho-Social History: No Pertinent History Male Reproductive Disorders: No Pertinent History Other Medical History: Heart Disease. AICD. Head&Neck Squamous Cell Cancer. anemia - Past Surgical History Past Surgical History: Yes Neuro Surgical History: No Pertinent History Cardiac: CABG, Cardiac Catheterization, Internal Defibrillator, Pacemaker Respiratory: No Pertinent History Gastrointestinal: Appendectomy, Cholecystectomy Genitourinary: Other Male Surgical History: No Pertinent History Other Surgical History: kidney stone removal - Social History Smoking Status: Never smoker Exposure to second hand smoke: No Drug Use: none Patient Lives Alone: No - Nursing Vital Signs Nursing Vital Signs: Initial Vital Signs Temperature 97.3 F 07/31/17 01:56 Pulse Rate 61 07/31/17 01:56 Respiratory Rate 16 07/31/17 01:56 Blood Pressure 134/60 07/31/17 01:56 O2 Sat by Pulse Oximetry 93 L 07/31/17 01:56 Pain Scale Pain Intensity 0 - Physical Exam General Appearance: no apparent distress, alert Head Injury: no evidence of injury Eye Exam: PERRL/EOMI ENT Exam: airway nml Neck Exam: normal inspection, No tenderness Respiratory/Chest Exam: normal breath sounds, No chest tenderness, No respiratory distress Cardiovascular Exam: normal heart sounds, regular rate/rhythm Gastrointestinal Exam: soft, No tenderness, No distention, No guarding, No ecchymosis Back Exam: normal inspection, No vertebral tenderness Extremity Exam: normal inspection, normal range of motion, pelvis stable, joint swelling, limited range of motion, pain with movement (TENDERNESS LATERAL EPICONDYLE RIGHT ELBOW, NO CREPITUS, MULTIPLE SUPERFICIALLACERATIONS PROXIMAL FORARM AND DISTAL BICEPS.. LEFT RADIAL PULSE 2+ ), No deformities Neurologic Exam: alert, oriented x 3, cooperative, sensation nml, No motor deficits Skin Exam: normal color, warm, dry SpO2: 93 Oxygen Delivery: Room Air Ordered Tests: Active Orders 24 hr Category Date Time Status Wound Care STAT Care 07/31/17 01:46 Active ELBOW (MINIMUM 3 VIEWS) Stat Exams 07/31/17 01:47 Taken - Departure Time of Disposition: 03:30 Departure Disposition: Home Clinical Impression: RIGHT ELBOW CONTUSION, , SKIN TEARS RIGHT ARM Condition: Stable Critical Care Time: No Referrals: LISSA TINOCO MD [Primary Care Provider] - Additional Instructions: ANTIBIOTIC KEFLEX 500MG EVERY 8 HOURS FOR 10 DAYS. WATCH FOR SIGNS OF INFECTION REDNESS, SWELLING OR DRAINAGE. CONSULT YOUR PRIMARY CARE PROVIDER FOR EVALUATION. Prescriptions: Cephalexin Mh 500 mg [Keflex 500 mg] 500 mg PO TID #30 capsule
[2017-07-31] MEDS ORDERED: KEFLEX 500 MG ONE (03:34)
[2017-07-31] MEDS ORDERED: KEFLEX 500 MG PO ONE (03:35)
[2017-07-31 04:15] VITALS: BP 125/78; PULSE 60; O2SAT 94
--- NOTE | 2017-07-31 09:10 | XRAY ---
Indication: Fall. Skin tears and abrasions. Comparison: None 3 views of the right elbow demonstrates mild osteopenia, faint vascular calcifications, and lateral elbow subcutaneous air presumed laceration. No other bony, articular, or soft tissue abnormalities.
== END 2017-07-31 04:10 | disposition home or self-care (01) ==
LOC: ED 01:43
DX: S50.01XA Contusion of right elbow, initial encounter (principal); S41.111A Laceration without foreign body of right upper arm, initial encounter; W19.XXXA Unspecified fall, initial encounter; J44.9 Chronic obstructive pulmonary disease, unspecified; I50.9 Heart failure, unspecified
CPT/HCPCS: 73080; 99283; A9270-GY